=== PATIENT | male | born 1940 | race Caucasian/White ===

== ENCOUNTER 2017-10-20 08:16 | Outpatient (CLI) | payer MEDICARE | END 2017-10-20 08:17 | disposition home or self-care (01) | LOC: BICULT 08:16 | PROVIDERS: ATTEND Internal Medicine Cardiovascular Disease | DX: K76.89 Other specified diseases of liver (principal); K76.0 Fatty (change of) liver, not elsewhere classified | CPT/HCPCS: 76705 ==

== ENCOUNTER 2019-07-02 20:59 | Emergency (ER) | payer MEDICARE ==
--- NOTE | 2019-07-03 01:12 | CON ---
DATE OF CONSULTATION: 07/02/2019 CONSULTING PHYSICIAN: Viet Turner MD REASON FOR CONSULTATION: Possible foreign body in his throat. HISTORY OF PRESENT ILLNESS: Mr. Du is a 78-year-old male, who was transferred from [place] around lunchtime eating a drumstick with chicken and feeling like a piece of the bone was lodged in his throat. From the ER [place], they stated that he still felt the bone lodged in his throat and transferred him down for further evaluation. He states that at this point in time, he feels no evidence of bone being lodged in his throat still, is not having difficulty swallowing. He has not had any hoarseness or difficulty breathing. He feels like it may be down in his stomach. There has been no hemoptysis. He denies any other complaints at this time. He is concerned about the bone rupturing his intestine. 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 He is not having difficulty swallowing or regurgitating up any undigested food. He does have a persistent cough. Please see the ER note for further details of his past medical history and review of systems reviewed on this date. PHYSICAL EXAMINATION: GENERAL: Well-developed, well-nourished white male, in no acute distress. HEENT: HEAD; normocephalic, atraumatic. Eyes; pupils are equal, round, and reactive to light. Extraocular movements are intact. EARS; tympanic membranes intact, mobile and clear. Nose shows a fluid infection noted. Mucosa looks pink and healthy. Not seen purulent drainage or infection. Oral cavity and oropharynx shows tonsils are absent. No evidence of any lesions. Multiple missing teeth. No foreign bodies or signs of injury were noted. NECK: No significant adenopathy or mass. Feel some gas movements when pushing on the left side of the pharynx suggesting he does have some entrapment of air in that area. No other palpable masses were noted. IMPRESSION: History of foreign body ingestion. No symptoms of being in his head and neck still, did not see any evidence on exam. Does have a history of Zenker 's. Does not have any symptoms of dysphagia or weight loss or aspiration. CT scan was reviewed and did not see evidence of any foreign bodies in his head and neck area. Did see what appeared to be a residual pouch in his lower neck. PLAN: Since he is not having symptoms in his head and neck area, I see no indications for doing surgery to look for the lesion. If it is already passed to the stomach, that should pass without needing any further intervention. At this point of time, I do not see anything that requires intervention on my part. Will follow up with me on an as-needed basis. Job ID: [id number] MTDD
== END 2019-07-02 22:48 | disposition home or self-care (01) ==
LOC: ERS 20:59
DX: T18.9XXA Foreign body of alimentary tract, part unspecified, initial encounter (principal); F32.9 Major depressive disorder, single episode, unspecified; I10 Essential (primary) hypertension; F41.9 Anxiety disorder, unspecified; F41.0 Panic disorder [episodic paroxysmal anxiety]; Z87.891 Personal history of nicotine dependence; Z79.891 Long term (current) use of opiate analgesic; Z79.01 Long term (current) use of anticoagulants; Z79.899 Other long term (current) drug therapy
CPT/HCPCS: 99283

== ENCOUNTER 2020-04-07 17:16 | Observation (INO) | payer MEDICARE ==
[2020-04-07] MEDS ORDERED: Aspirin Chewable 81 MG TAB ONE (18:33)
[2020-04-07 19:09] LABS: Troponin I 0.018 ng/mL (< 0.028)
[2020-04-07 21:51] LABS: Troponin I Less than 0.010 ng/mL (< 0.028)
--- NOTE | 2020-04-07 23:30 | HP ---
REASON FOR ADMISSION: Chest pain. HISTORY OF PRESENT ILLNESS: This is a 79-year-old male patient, who does have history of memory loss, presenting to the ER as a transfer from [facility] for chest pain that occurred around 11:30 a.m. He informed his that he developed left-sided chest pain, nonradiating, described as if he was hit by a sledgehammer on the left side of his chest and the sensation woke him up from sleep and then resolved by the time he arrived to the emergency room. Currently, he is eating his dinner. Appears to be very comfortable. No acute distress. PAST MEDICAL HISTORY: 1. Two throat surgeries for Zenker diverticulum. 2. Pyloric stenosis postsurgery. 3. High blood pressure. 4. High cholesterol. 5. Chronic back and leg pain post pain pump insertion. 6. Short memory loss. 7. Status post appendectomy. 8. Panic attacks. 9. Valvulopathy, followed by his stablehand. SOCIAL HISTORY: Does not drink. Quit smoking in 1983. FAMILY HISTORY: Negative for coronary artery disease. REVIEW OF SYSTEMS: All systems reviewed, except the above mentioned, found to be negative. PHYSICAL EXAMINATION: GENERAL: Awake, alert, and oriented, does not appear in distress. VITAL SIGNS: His blood pressure is 103/67, heart rate of 62, and saturating 96% on room air. HEENT: Head is nontraumatic and normocephalic. Pupils equal, reactive. Extraocular movements are intact. Nonicteric sclerae. Well-injected conjunctivae. Oral mucosa normal. Nasal mucosa normal. NECK: Supple. No adenopathy. No murmur. Thyroid is not palpable. Trachea is midline. No supraclavicular adenopathy. HEART: S1, S2. Regular. Faint systolic murmur heard. No displacement of PMI. LUNGS: Clear to auscultation bilaterally. No wheezes, rhonchi, or crackles. Bowel sounds are positive. Nontender abdomen. No hepatosplenomegaly. EXTREMITIES: No lower extremity edema. No cyanosis. NEUROLOGIC: Cranial nerves 2 through 12 are within normal limits. Normal motor function. Normal sensory function. Normal reflexes. LABORATORY: Blood work shows WBC 5.8, hemoglobin 14.8, and platelets of 200. D-dimer less than 0.27. Sodium of 140, potassium 4.2, bicarb 24, and creatinine of 1.44. No previous labs to compare with. Troponin initially 0.01, repeat 0.018. EKG shows normal sinus rhythm. ASSESSMENT AND PLAN: This is a 79-year-old male patient, who is presenting with chest pain. We will admit him to rule out acute coronary syndrome. Cardiac: Patient will be admitted to telemetry. We will continue cycling cardiac enzymes. We will provide him with blood pressure control. We will schedule him for a nuclear stress test in the morning. For DVT prophylaxis, SCDs and Lovenox. For his abnormal creatinine, we will recheck his creatinine in the morning. I did discuss with his his code status and he wishes to be a full code. Job ID: [id number]
[2020-04-08 04:38] LABS: Anion Gap 15 mmol/L (10-20); BUN (Urea Nitrogen) 25 mg/dL (8.4-25.7); Calc. Creatinine Clearance 0 mL/min (70-130); Calcium 9.4 mg/dL (7.8-10.44); Carbon Dioxide 24 mmol/L (23-31); Chloride 106 mmol/L (98-107); Estimated GFR-MDRD 54; Glucose 101 mg/dL (83-110); Potassium 3.9 mmol/L (3.5-5.1); Sodium 141 mmol/L (136-145)
--- NOTE | 2020-04-08 08:30 | PDOC.HOSPP ---
- Subjective Encounter Date: 04/08/20 Encounter Time: 15:00 Subjective: Patient back from stress test. Results pending. Patient without any chest pain. Feels back to normal. - Objective Result Diagrams: 04/08/20 04:05 Hospitalist ROS - Review of Systems Constitutional: denies: fever, chills Respiratory: denies: cough, shortness of breath Cardiovascular: denies: chest pain, palpitations Gastrointestinal: denies: nausea, vomiting, abdominal pain - Exam General Appearance: NAD, awake alert ENT: moist mucosa Heart: RRR, no murmur, no gallops, no rubs Respiratory: CTAB, no wheezes, no rales, no ronchi Gastrointestinal: soft, non-tender, non-distended, normal bowel sounds Psychiatric: normal affect, normal behavior, A&O x 3 Hosp A/P (1) Chest pain, rule out acute myocardial infarction Code(s): R07.9 - CHEST PAIN, UNSPECIFIED Status: Resolved (2) HTN (hypertension) Code(s): I10 - ESSENTIAL (PRIMARY) HYPERTENSION Status: Chronic (3) HLD (hyperlipidemia) Code(s): E78.5 - HYPERLIPIDEMIA, UNSPECIFIED Status: Chronic (4) Valvular heart disease Status: Chronic (5) Chronic back pain Code(s): M54.9 - DORSALGIA, UNSPECIFIED; G89.29 - OTHER CHRONIC PAIN Status: Chronic (6) Anxiety Code(s): F41.9 - ANXIETY DISORDER, UNSPECIFIED Status: Chronic - Plan Cardiac markers negative x3. Awaiting nuclear medicine stress test. If negative can d/c home and have him f/u with his PCP and dance professor.
[2020-04-08] MEDS ORDERED: Enoxaparin Sodium 40 MG/0.4 ML SYRINGE SC SCH (09:00)
[2020-04-08] MEDS ORDERED: Enoxaparin Sodium 40 MG/0.4 ML SYRINGE ONE (09:07)
[2020-04-08] MEDS ORDERED: ADENOSINE 60 MG/20 ML VIAL ONE (13:13)
[2020-04-08 13:56] LABS: SARS-CoV-2 MS2 Positive; SARS-CoV-2 N Gene Negative; SARS-CoV-2 S Gene Negative; SARS-CoV-2 by NAA Not Detected (NotDetected); SARS-CoV-2 orf1ab Negative
[2020-04-08 14:40] VITALS: BMI 30.6
[2020-04-08] MEDS ORDERED: clonazePAM 0.5 MG TAB PO SCH (15:00)
[2020-04-08 15:53] VITALS: BP 131/63; TEMP 97.9
--- NOTE | 2020-04-08 16:15 | NM ---
EXAM: CARDIAC SPECT HISTORY: Chest pain, hypertension, cholesterol, valvular heart disease TECHNIQUE: A myocardial perfusion scan was performed using the single isotope 1 day protocol with rubén hnetium 99m sestamibi. [10 mCi] was injected intravenously for the rest exam followed by 30 mCi for the stress study. Pharmacologic stress with adenosine was monitored and interpreted by the nurse practitioner FINDINGS: Homogeneous tracer distribution is seen in the myocardial segments on stress and rest image s without fixed or reversible defects. Gated SPECT LVEF: 57% Wall motion exam: Normal IMPRESSION: Normal myocardial perfusion scan
[2020-04-08] MEDS ORDERED: Atorvastatin Calcium 20 MG TAB PO SCH (21:00)
[2020-04-08] MEDS ORDERED: Simvastatin 40 MG TAB PO SCH (21:00)
[2020-04-09] MEDS ORDERED: Escitalopram Oxalate 10 mg Tablet PO SCH (09:00)
[2020-04-09] MEDS ORDERED: UBIQUINOL 100 MG PO SCH ×2 (09:00)
[2020-04-09] MEDS ORDERED: Ascorbic Acid 500 mg Chewable Tablet PO SCH (09:00)
[2020-04-09] MEDS ORDERED: Tamsulosin HCl 0.4 MG CAP PO SCH (09:00)
[2020-04-09] MEDS ORDERED: Aspirin 81 mg Enteric Coated Tablet PO SCH (09:00)
[2020-04-09] MEDS ORDERED: Lisinopril 10 MG TAB PO SCH (09:00)
--- NOTE | 2020-04-10 08:33 | DIS ---
DATE OF ADMISSION: 04/07/2020 DATE OF DISCHARGE: 04/08/2020 PRIMARY CARE PHYSICIAN: Maximo Cohn MD REASON FOR ADMISSION: Chest pain. DIAGNOSES AT DISCHARGE: 1. Chest pain, resolved. 2. Hypertension. 3. Hyperlipidemia. 4. Valvular heart disease. 5. Chronic back pain. 6. Anxiety. PROCEDURES: Nuclear medicine stress test showing no evidence for coronary artery disease, normal nuclear medicine stress test. CONSULTATIONS: None. SUMMARY OF HOSPITAL COURSE: This is a 79-year-old white male who presents to the ER after waking up with chest pain around 11:30 in the morning. It is left-sided, nonradiating, felt like he was hit by a sledge hammer on left side of the chest that woke him up from sleep. The pain resolved by the time he got to the emergency room and he has not had any recurrence. The patient had negative cardiac markers, negative D-dimer. He was observed in the hospital overnight. He had a nuclear medicine stress test this morning that was normal. He also had a normal EKG, just a first-degree AV block, but no ST-segment or T-wave abnormalities. The patient was asymptomatic at the time of discharge and is being discharged home. DISCHARGE MANAGEMENT: Discharged home. ACTIVITY: As tolerated. DIET: Healthy heart, low-sodium diet. FOLLOWUP: With primary care physician in 1 to 2 weeks. DISCHARGE MEDICATIONS: 1. Vitamin C 500 mg daily. 2. Aspirin 81 mg daily. 3. Clonazepam 0.5 mg 3 times a day. 4. Lexapro 10 mg daily. 5. Lisinopril 10 mg daily. 6. Simvastatin 40 mg at night. 7. Tamsulosin 0.4 mg daily. 8. Ubiquinol 100 mg daily. Job ID: [id number]
== END 2020-04-08 18:31 | disposition home or self-care (01) ==
LOC: ERS 17:16 → ERHOLD 18:14 → 2NO 04-08 10:57
PROVIDERS: ADMIT Emergency Medicine; ATTEND Emergency Medicine
DX: R07.9 Chest pain, unspecified (principal); I11.9 Hypertensive heart disease without heart failure; E78.5 Hyperlipidemia, unspecified; F41.9 Anxiety disorder, unspecified; F32.9 Major depressive disorder, single episode, unspecified; G89.29 Other chronic pain; M54.5 Low back pain; Z79.82 Long term (current) use of aspirin; Z79.899 Other long term (current) drug therapy; Z87.891 Personal history of nicotine dependence; Z88.7 Allergy status to serum and vaccine; Z88.8 Allergy status to other drugs, medicaments and biological substances; Z20.828 Contact with and (suspected) exposure to other viral communicable diseases
CPT/HCPCS: 78452; 80048; 84484; 93005; 93017; 96372; 99285; A9500; G0378 ×3; U0003; 36415; 87635; J0153; J1650

== ENCOUNTER 2020-05-20 06:00 | Inpatient (IN) | payer MEDICARE ==
--- NOTE | 2020-05-20 10:16 | PDOC.FPRHP ---
- History of Present Illness Chief Complaint: fever History of Present Illness: Pt is a 79 yo male w/ PMH of HTN, HLD, dementia who presents with fever and AMS. Pt's is at bedside and able to give us the history as pt has problems with recall. Around 1am this morning, pt was found in bed by and was not able to converse as normal. He was able to follow all commands but was very weak and could not get out of bed. His reports that he does have periods of "lethargy" chronically. At baseline he is able to ambulate around the house. He has been using a walker due to a recent ankle injury. She also noticed he "felt warm" and was found to have a fever of 102F. Yesterday he was not as active as normal and went to bed early. Also had some dyspepsia. Pt denies SOB, cough, myalgia, N/V, diarrhea. Not aware of any sick contacts. Was seen at outside ED, given vancomycin, cefepime and 1L NS then transferred here. ED Course: as above - Allergies/Adverse Reactions Allergies Allergy/AdvReac Type Severity Reaction Status Date / Time donepezil [From Aricept] Allergy Verified 05/20/20 11:41 tetanus immune globulin Allergy Verified 05/20/20 11:41 - Home Medications Medication Instructions Recorded Confirmed Type Ascorbic Acid [Vitamin C] 500 mg PO DAILY 01/20/14 05/20/20 History Escitalopram Oxalate 20 mg PO DAILY 01/20/14 05/20/20 History Lisinopril 10 mg PO DAILY 01/20/14 05/20/20 History Simvastatin 40 mg PO HS 01/20/14 05/20/20 History Tamsulosin HCl 0.4 mg PO HS 01/20/14 05/20/20 History Ubiquinol 100 mg PO BID 01/20/14 05/20/20 History clonazePAM 1 mg PO HS 01/20/14 05/20/20 History Cholecalciferol (Vitamin D3) 2,000 unit PO DAILY 05/20/20 05/20/20 History [Vitamin D3] Gabapentin [Neurontin] 100 mg PO TID 05/20/20 05/20/20 History Lutein 20 mg PO DAILY 05/20/20 05/20/20 History Memantine HCl [Namenda] 10 mg PO BID 05/20/20 05/20/20 History Multivitamin [Multivitamins] 1 tablet PO DAILY 05/20/20 05/20/20 History Rivaroxaban [Xarelto] 20 mg PO 1800 05/20/20 05/20/20 History - History PMHx: hx of PE, HTN, HLD, chronic back pain, short term memory loss, possible dementia, anxiety, valvular disease, concussion PSHx: throat x2 for zenker diverticulum, back surgery x2, pyloric stenosis, appendectomy FHx: heart disease, mother-pancreatic cancer and dementia Social: no T/A/D, 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 denies: nausea, vomiting, diarrhea Genitourinary: denies: dysuria Skin: denies: rashes Musculoskeletal: denies: pain, tenderness Neurological: reports: weakness - Vital signs BP: 114/71, HR 60, RR 20, O2 97% on RA, Tmax 102.2F - Physical Exam Constitutional: NAD -Constitutional: AO x2 HEENT: normocephalic and atraumatic, no scleral icterus, grossly normal vision, grossly normal hearing -HEENT: wearing nasal cannula Neck: supple, no JVD Heart: RRR, normal S1/S2, no edema -Heart: 2/6 holosystolic murmur heard throughout with radiation to L carotid Lungs: CTAB, no respiratory distress, no rales/rhonchi, no wheezing Abdomen: soft, non-tender, no masses/distention Musculoskeletal: normal structure, ROM grossly normal Neurological: no focal deficit Skin: no rash/lesions, no jaundice Heme/Lymphatic: no unusual bruising or bleeding Psychiatric: normal mood and affect -Psychiatric: poor memory FMR H&P: Results - Labs Result Diagrams: 05/20/20 12:47 05/20/20 12:47 FMR H&P: A/P - Plan #Acute metabolic encephalopathy and SIRS, unknown source -WBC 5.7, bands 31, Fever -lactate 1.7, electrolytes WNL, flu neg -pt appears to be back at baseline, well appearing, in no acute distress -CXR: no acute abnormality -given vanc and cefepime in ED, will wait for labs results and decide whether to continue -pending COVID, procal, BCx, UCx, RVP -post acute screening: PT/OT, CM for possible placement -tylenol prn for fever #DOMINICK vs CKD -BUN/Cr: 23/06.46 -unsure of baseline kidney function -given 1L NS at outside ED, now on mIVF -pending repeat BMP #R ankle sprain -occurred 2 weeks ago, has been using walker at home -consult PT/OT -fall precautions, ambulate with assist #hx of esophageal disease -hx of 2 surgeries for zenker diverticulum, eats normal diet - noticed recent changes in swallow and GERD sx -consult speech, appreciate recs #hx of PE -continue home xarelto #HTN -continue home meds #dementia -continue home meds #HLD -continue home meds #hx of constipation -prn docusate and miralax #BPH -continue home meds #Anxiety -continue home meds Code: Full IVF: LR @ 100ml/hr DVT ppx: xarelto PCP: OOT Diet: HH Dispo: Admit to medical, pending work up for source of infection. FMR H&P: Upper Level - Pertinent history PCP: DIRECTOR OF WEB MARKETING HPI: [id number] with a PMH notable for HTN, dementia, valvular disease (suspected ), and Hx PE on xarelto who was directly admitted from the [place] ER for SIRS without a source. Due to the patients dementia history was obtained from his who was at bedside. Reports the patient was his normal self until yesterday when he was more drowsy than normal & not interested in running errands with her like he usually is. Reports last night she went up to use the bathroom and when she returned he was horizontal in the bed and unable to even sit up on his own so she called EMS. On arrival to [place] he was determined to be septic due to a fever of 102.2F and bandemia of 31 so was given Vanc & cefepime as well as 1L NS. Was then sent to [facility] for further workup. Patient denies any chest pain, SOB, cough, dysuria, myalgias or N/V/D. Endorses fever and constipation but per the nurse had a BM this AM. Per mentation is now back to baseline. ED course: 1L NS, IV vanc & cefepime See Drawer Maker note for details of PMH. - Pertinent findings Labs/Imaging: WBC 5.7, 31 bands BUN/Cr 22/1.48 eGFR 46 procal pending CXR: NAF UA: trace blood REVIEW OF SYSTEMS: Gen: + fever, chills, generalized weakness Neuro: no syncope, no new weakness Eyes: no visual changes, no eye pain ENT: no sore throat, no congestion Resp: no cough, no SOB Card: no chest pain, no edema GI: no N/V/D/C, no abdominal pain : no hematuria or dysuria MSK: no myalgias or arthritis; R ankle pain s/p sprain Heme: on Xarelto Skin: no rash/itching Vitals: BP: 133/60 HR: 58 RR: 20 O2 sat 98% on 2L NC Temp: 97.2F PHYSICAL EXAMINATION: General: NAD, alert and oriented x2 HEENT: normocephalic atraumatic Neck: Supple. Full ROM. Heart/Cardiovascular System: RRR, 3/6 systolic murmur heard best @ R sternal border w/ radiation into carotids Lungs/Respiratory System: CTAB Abdomen/Gastro-Intestinal System: soft w/ no abdominal tenderness, normal bowel sounds Extremities: Warm extremities. Mild TTP on R ankle w/o brusing or edema noted. Neuro: non-focal; CN 2-12 grossly intact. Oriented to person and place only Psychiatry: Awake, Alert and cooperative with exam. Skin: No lesions, rashes, or ulcers noted. - Plan Date/Time: 05/20/20 1016 I, Kimberlee Shine, have evaluated this patient and agree with findings/plan as outlined by director internal communications resident. Pertinent changes/additions are listed here. A/P: #Acute Metabolic encephalopathy and SIRS 2/2 unknown etiology -Patient met SIRS on presentation given bandemia & fever. Blood & urine Cxs obtained as well as a CXR which was WNLs and a flu swab which was negative. S/p BS abx as noted above in outside ED. Was then sent to [facility] for COVID swab due to suspicion of possible COVID-19 infection as potential source. Encephalopathy resolved per at time of exam. Will continue BS abx pending procal level. Rapid covid swab pending. Will obtain a rapid COVID swab. PRN Tylenol for recurrent fever. #DOMINICK vs. CKD III -BUN/Cr /1.46 in [place]. Unknown baseline renal function. Repeat BMP pending. Will continue mIVFs & continue to trend & renally dose meds PRN. #R ankle sprain -PT/OT consulted. PRN Tylenol for pain. OOB w/ assist & fall precautions. #Dementia -Will resume home meds. #HTN -Resume home meds #Suspected Aortic stenosis -Murmur noted on exam. Per follows w/ cards. #Hx of PE -Aware, continue home xarelto #HLD -Resume home meds. #Anxiety - Home meds #BPH - Home meds ABx: None IVFs: NS @ 100mL/hr VTE PPX: home Xarelto GI PPX: None Code status: FULL CODE Dispo: Admit to medical floor for close monitoring & continued workup for source of infection. Addendum - Attending - Attending Attestation Date/Time: 05/20/202046 I personally evaluated the patient and discussed the management with Dr. Sloan/Nabor. H&P repeated by me. I agree with the History, Examination, Assessment and Plan documented above with any addition or exceptions noted below. SIRS without a source- procal and lactate neg- no obvious bacterial source- IVF and RVP and trend labs. Deconditioning- PT eval for possible placement or HH PT
[2020-05-20] MEDS ORDERED: Ondansetron PF 4 MG/2 ML Vial IVP PRN (11:05)
[2020-05-20 11:43] VITALS: BMI 35.4
[2020-05-20] MEDS ORDERED: Polyethylene Glycol 3350 17 GM Packet PO PRN (11:46)
[2020-05-20] MEDS ORDERED: Docusate 100 MG CAP PO PRN (11:46)
[2020-05-20 12:20] LABS: SARS-CoV-2 MS2 Positive; SARS-CoV-2 N Gene Negative; SARS-CoV-2 S Gene Negative; SARS-CoV-2 by NAA Not Detected (NotDetected); SARS-CoV-2 orf1ab Negative
[2020-05-20] MEDS ORDERED: Lisinopril 10 MG TAB PO SCH (12:45)
[2020-05-20] MEDS ORDERED: Ascorbic Acid 500 mg Chewable Tablet PO SCH (12:45)
[2020-05-20] MEDS ORDERED: Escitalopram Oxalate 20 mg Tablet PO SCH (12:45)
[2020-05-20 12:55] LABS: Hemoglobin 11.9 g/dL (14.0-18.0); Mean Corpuscular HGB CONC 33.9 g/dL (32.0-36.0); Mean Corpuscular Volume 97.5 fL (78.0-98.0); Mean Platelet Volume 8.6 fL (7.4-10.4); Platelet Count 140 thou/uL (130-400); RBC Distribution Width 11.8 % (11.5-14.5); White Blood Cell (WBC) Count 4.6 thou/uL (4.8-10.8)
[2020-05-20 13:13] LABS: Anion Gap 14 mmol/L (10-20); BUN (Urea Nitrogen) 16 mg/dL (8.4-25.7); Calc. Creatinine Clearance 68 mL/min (70-130); Calcium 8.2 mg/dL (7.8-10.44); Carbon Dioxide 22 mmol/L (23-31); Chloride 105 mmol/L (98-107); Glucose 94 mg/dL (83-110); Potassium 4.3 mmol/L (3.5-5.1); Sodium 137 mmol/L (136-145)
[2020-05-20 13:16] LABS: Band 23 % (5-11); Eosinophils 4 % (0-10); Lymphocytes 12 % (21-51); MDiff Complete? YES; Monocytes 21 % (0-10); Neutrophil 37 % (42-75); Platelet Morphology Comment Appears Adequate; Polychromasia SLIGHT = 2-3 cells (100X) (0-2/hpf); Reactive Lymphocytes 3 % (0-10)
[2020-05-20] MEDS: Gabapentin 100 MG CAP PO SCH ×2 (13:45→21:10)
[2020-05-20] MEDS: Lactated Ringer's 1,000 ML IV SCH (13:45)
[2020-05-20] MEDS ORDERED: guaiFENesin ER 600 MG TAB PO PRN (17:10)
[2020-05-20] MEDS: Rivaroxaban 10 MG TAB PO SCH (17:41)
[2020-05-20] MEDS: Tamsulosin HCl 0.4 MG CAP PO SCH (21:10)
[2020-05-20] MEDS: Atorvastatin Calcium 20 MG TAB PO SCH (21:10)
[2020-05-20] MEDS: Ubidecarenone 50 MG CAP PO SCH (21:10)
[2020-05-20] MEDS: clonazePAM 0.5 MG TAB PO SCH (21:12)
--- NOTE | 2020-05-20 21:54 | RAD ---
CHEST ONE VIEW: History: Comparison: Radiograph same day FINDINGS: Dorsal column stimulator electro tips are similar. No confluent air space consolidation, pneumothorax or effusion. Mild lung hypoinflation. Heart size is enlarged. No pneumothorax. IMPRESSION: No acute intrathoracic abnormality. POS: HOME
[2020-05-21] MEDS: Lactated Ringer's 1,000 ML IV SCH ×2 (03:42→12:22)
[2020-05-21] MEDS: Acetaminophen 325 MG TAB PO PRN (05:04)
[2020-05-21 06:10] LABS: #Lymphocytes 0.5 thou/uL (1.20-3.40); #Monocytes 0.8 thou/uL (0.11-0.59); #Neutrophils 4.3 thou/uL (1.40-6.50); %Basophils 0.2 % (0.0-1.0); %Eosinophils 0.2 % (0.0-10.0); %Lymphocytes 8.9 % (21.0-51.0); %Monocytes 13.5 % (0.0-10.0); %Neutrophils 77.3 % (42.0-75.0); Hemoglobin 11.4 g/dL (14.0-18.0); Mean Corpuscular HGB CONC 33.8 g/dL (32.0-36.0); Mean Corpuscular Hemoglobin 32.4 pg (27.0-31.0); Mean Corpuscular Volume 96.1 fL (78.0-98.0); Platelet Count 131 thou/uL (130-400); RBC Distribution Width 11.8 % (11.5-14.5); Red Blood Cell (RBC) Count 3.53 mill/uL (4.70-6.10); White Blood Cell (WBC) Count 5.6 thou/uL (4.8-10.8)
--- NOTE | 2020-05-21 06:19 | PDOC.FM ---
- Subjective Subjective: Pt resting comfortably. Had fever overnight with some confusion, per . No complaints this morning. states that yesterday patient had come coughing and gagging when eating meat on dinner tray. - Objective Vital Signs & Weight: Vital Signs (12 hours) Temp Pulse Resp BP Pulse Ox 05/21/20 04:39 102.4 F H 91 22 H 120/58 L 91 L 05/20/20 23:34 98.2 F 59 L 18 114/56 L 96 05/20/20 19:43 101.3 F H 62 18 147/67 H 96 Weight Weight 105.69 kg I&O: 05/19/20 05/20/20 05/21/20 06:59 06:59 06:59 Intake Total 1680 Output Total 475 Balance 1205 Result Diagrams: 05/21/20 05:39 05/21/20 05:39 Radiology Reviewed by me: Yes Phys Exam - Physical Examination Constitutional: NAD HEENT: sclera anicteric Neck: supple Respiratory: no wheezing, clear to auscultation bilateral Cardiovascular: RRR 2/6 holosystolic heard throughout Gastrointestinal: soft, non-tender Musculoskeletal: no edema LEs symmetric in size, no erythema, no wounds, no tenderness with palpation of muscles or joints Neurological: non-focal Skin: no rash Dx/Plan - Plan Plan: #Acute metabolic encephalopathy and SIRS, unknown source -WBC 5.7>5.6, bands 31, continued to fever overnight -lactate 1.7, electrolytes WNL, flu neg -pt is overall well appearing, in no acute distress -repeat CXR: new airspace opacities, concerning for COVID pna -COVID was negative yesterday, will repeat today -procal 0.05>0.08, RVP negative -pending: BCx, UCx -post acute screening: PT/OT, CM for possible placement -tylenol prn for fever -Abx: vanc, cefepime for broad coverage #dysphagia -hx of esophageal stricture and zenker diverticulum s/p 2 surgeries -NPO until evaluated by speech #DOMINICK vs CKD -BUN/Cr: 23/06.46 -unsure of baseline kidney function -given 1L NS at outside ED, now on mIVF -pending repeat BMP #R ankle sprain -occurred 2 weeks ago, has been using walker at home -consult PT/OT -fall precautions, ambulate with assist #hx of PE -continue home xarelto #HTN -continue home meds #dementia -continue home meds #HLD -continue home meds #hx of constipation -prn docusate and miralax #BPH -continue home meds #Anxiety -continue home meds Code: Full IVF: LR @ 100ml/hr DVT ppx: xarelto PCP: OOT Diet: HH Dispo: Admit to medical, pending work up for source of infection. Addendum - Attending - Attending Attestation Date/Time: 05/21/20 [id number] I personally evaluated the patient and discussed the management with Dr. Sloan. I agree with the History, Examination, Assessment and Plan documented above with any addition or exceptions noted below. Fever without a source- Procal and ESR normal. COVID PCR neg but repeat CXR concerning for covid pna- will get antibodies and follow closely. No hypoxia. Patient with hx of PE and on xarelto and no hypoxia, lower ext pain or redness to suggest another clot. ESR was normal so doubt autoimmune causes. Peripheral smear pending. Will restart broad spectrum abx until cultures result. Unsure cause.
[2020-05-21 06:25] LABS: Anion Gap 14 mmol/L (10-20); BUN (Urea Nitrogen) 18 mg/dL (8.4-25.7); Calc. Creatinine Clearance 70 mL/min (70-130); Calcium 8.1 mg/dL (7.8-10.44); Carbon Dioxide 22 mmol/L (23-31); Chloride 101 mmol/L (98-107); Glucose 103 mg/dL (83-110); Potassium 4.2 mmol/L (3.5-5.1); Sodium 133 mmol/L (136-145)
--- NOTE | 2020-05-21 08:07 | RAD ---
XR Chest 1 View Portable History: Fever Comparison: Radiograph prior day Findings: Heart size is enlarged. Dorsal column stimulator electrode TIPS are similar. New peripheral airspace opacities in the lungs. Impression: New perihilar and peripheral airspace opacities concerning for a Covid-19 pneumonia.
[2020-05-21] MEDS ORDERED: Escitalopram Oxalate 10 mg Tablet PO SCH (09:00)
[2020-05-21] MEDS ORDERED: Vancomycin 1 GM in Premix Bag 1 BAG IVPB SCH (09:00)
[2020-05-21] MEDS: Cefepime 2 GM in Sodium Chloride 0.9% 100 ML IVPB SCH ×2 (09:12→20:53)
[2020-05-21] MEDS: Ascorbic Acid 500 mg Chewable Tablet PO SCH (09:46)
[2020-05-21] MEDS: Cholecalciferol 1,000 UNITS (25 MCG) TAB PO SCH (09:46)
[2020-05-21] MEDS: Ubidecarenone 50 MG CAP PO SCH ×2 (09:47→20:52)
[2020-05-21] MEDS: Gabapentin 100 MG CAP PO SCH ×3 (09:47→20:52)
[2020-05-21] MEDS: Multivit, Therapeutic 1 TAB PO SCH (09:51)
[2020-05-21] MEDS: Lisinopril 10 MG TAB PO SCH (09:51)
[2020-05-21] MEDS: Escitalopram Oxalate 20 mg Tablet PO SCH (09:52)
[2020-05-21] MEDS: Vancomycin HCl 750 MG in Sodium Chloride 0.9% 250 ML 250 ML IVPB SCH ×2 (10:35→20:53)
[2020-05-21] MEDS: Rivaroxaban 10 MG TAB PO SCH (17:25)
[2020-05-21] MEDS: Tamsulosin HCl 0.4 MG CAP PO SCH (20:52)
[2020-05-21] MEDS: clonazePAM 0.5 MG TAB PO SCH (20:52)
[2020-05-21] MEDS: Atorvastatin Calcium 20 MG TAB PO SCH (20:52)
[2020-05-22] MEDS ORDERED: Diabetic Tussin 200 MG/10 ML UDCUP PO PRN (00:10)
[2020-05-22] MEDS: Lactated Ringer's 1,000 ML IV SCH ×3 (00:10→19:59)
[2020-05-22] MEDS ORDERED: Acetaminophen 650 MG Suppository PR PRN (00:11)
[2020-05-22] MEDS: Albuterol 200 PUFF (6.7GM INHALER) INH SCH ×6 (02:06→22:00)
--- NOTE | 2020-05-22 06:07 | PDOC.FM ---
- Subjective Subjective: Pt resting comfortably in bed this AM. No acute events overnight. Tmax 99.0 overnight. - Objective Vital Signs & Weight: Vital Signs (12 hours) Temp Pulse Resp BP Pulse Ox 05/21/20 23:35 98.6 F 63 18 133/61 97 05/21/20 19:43 98.4 F 52 L 20 122/58 L 97 Weight Weight 105.69 kg I&O: 05/20/20 05/21/20 05/22/20 06:59 06:59 06:59 Intake Total 1680 Output Total 475 Balance 1205 Result Diagrams: 05/22/20 07:48 05/22/20 07:49 Phys Exam - Physical Examination Constitutional: NAD HEENT: moist MMs Neck: supple Respiratory: no wheezing, no rales, no rhonchi, clear to auscultation bilateral Cardiovascular: RRR, no significant murmur, no rub Gastrointestinal: soft, non-tender, no distention, positive bowel sounds Musculoskeletal: pulses present Neurological: moves all 4 limbs Psychiatric: normal affect, A&O x 3 Skin: normal turgor Dx/Plan - Plan Plan: #Acute metabolic encephalopathy and SIRS, unknown source -COVID was negative, Ab pending -procal 0.05>0.08, RVP negative -pending: BCx, UCx -post acute screening: PT/OT, CM for possible placement -tylenol prn for fever -Abx: vanc, cefepime for broad coverage #Dysphagia -hx of esophageal stricture and zenker diverticulum s/p 2 surgeries -Speech eval: pureed diet with extra gravy/sauce; nectar thick liquid by cup -Barrium swallow pending, NPO for now #DOMINICK vs CKD -BUN/Cr: /.46 -unsure of baseline kidney function -given 1L NS at outside ED, now on mIVF -pending repeat BMP #R ankle sprain -occurred 2 weeks ago, has been using walker at home -consult PT/OT recommended HH with PT -fall precautions, ambulate with assist Chronic Conditions: #Hx of PE: -continue home xarelto #HTN: -continue home meds #Dementia: -continue home meds #HLD: -continue home meds #BPH: -continue home meds #Anxiety: -continue home meds Code: Full IVF: LR @ 100ml/hr DVT ppx: xarelto PCP: YOGESH Diet: HH Dispo as of 05/22: Admit to medical, pending work up for source of infection.
[2020-05-22 08:24] LABS: Hemoglobin 12.2 g/dL (14.0-18.0); Mean Corpuscular HGB CONC 33.2 g/dL (32.0-36.0); Mean Corpuscular Hemoglobin 32.2 pg (27.0-31.0); Mean Platelet Volume 9.2 fL (7.4-10.4); Platelet Count 131 thou/uL (130-400); Red Blood Cell (RBC) Count 3.79 mill/uL (4.70-6.10); White Blood Cell (WBC) Count 6.5 thou/uL (4.8-10.8)
[2020-05-22 08:30] LABS: Band 15 % (5-11); Lymphocytes 15 % (21-51); MDiff Complete? YES; Monocytes 7 % (0-10); Neutrophil 63 % (42-75); Platelet Morphology Comment Appears Adequate; RBC Morphology Normal
[2020-05-22 08:37] LABS: Anion Gap 16 mmol/L (10-20); BUN (Urea Nitrogen) 18 mg/dL (8.4-25.7); Calc. Creatinine Clearance 76 mL/min (70-130); Calcium 8.5 mg/dL (7.8-10.44); Carbon Dioxide 20 mmol/L (23-31); Chloride 105 mmol/L (98-107); Glucose 102 mg/dL (83-110); Potassium 4.2 mmol/L (3.5-5.1); Sodium 137 mmol/L (136-145)
[2020-05-22] MEDS: Cholecalciferol 1,000 UNITS (25 MCG) TAB PO SCH (09:00)
[2020-05-22] MEDS: Gabapentin 100 MG CAP PO SCH ×3 (09:00→20:33)
[2020-05-22] MEDS: Ubidecarenone 50 MG CAP PO SCH ×3 (09:00→20:34)
[2020-05-22] MEDS: Multivit, Therapeutic 1 TAB PO SCH (09:00)
[2020-05-22] MEDS: Ascorbic Acid 500 mg Chewable Tablet PO SCH (09:00)
[2020-05-22] MEDS: Cefepime 2 GM in Sodium Chloride 0.9% 100 ML IVPB SCH ×2 (09:00→20:33)
[2020-05-22] MEDS: Vancomycin HCl 750 MG in Sodium Chloride 0.9% 250 ML 250 ML IVPB SCH ×2 (10:33→21:17)
[2020-05-22] MEDS: Lisinopril 10 MG TAB PO SCH (12:21)
[2020-05-22] MEDS: Escitalopram Oxalate 20 mg Tablet PO SCH (12:22)
--- NOTE | 2020-05-22 14:00 | RAD ---
Modified barium swallow HISTORY: Dysphagia. Feeding difficulties. Aspiration. Prior diverticulum repair. FINDINGS: Exam was performed in conjunction with speech pathology with multiple consistencies. Video review is available and demonstrates good bolus formation and initiation of swallowing. Reflux of contrast from the upper thoracic esophagus was seen into the posterior pharynx, resulting i n some penetration and aspiration upon additional swallowing. Additional imaging was performed with patient in AP and oblique position, revealing a large outpouchi ng of contrast from the left side of the upper esophagus, slightly anterior, below the level of the upper esophageal sphincter. As the diverticulum decompressed, there was reflux of contrast into the p osterior pharynx. The esophagus below this level was not evaluated. 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 (Approximately 3 cm l ength) Please see separate detailed report from speech pathology.
[2020-05-22 15:14] LABS: SARS-CoV-2 IgG Ab Non-Reactive (NonReactive); SARS-CoV-2 IgG Index 0.01 S/CO (< 1.40)
[2020-05-22] MEDS: Rivaroxaban 10 MG TAB PO SCH (17:08)
[2020-05-22] MEDS: Tamsulosin HCl 0.4 MG CAP PO SCH (20:33)
[2020-05-22] MEDS: clonazePAM 0.5 MG TAB PO SCH (20:33)
[2020-05-22 20:34] LABS: Vancomycin, Trough 9.5 ug/mL
[2020-05-22] MEDS: Atorvastatin Calcium 20 MG TAB PO SCH (20:34)
[2020-05-22] MEDS: Vancomycin 1 GM in Premix Bag 1 BAG IVPB SCH (22:00)
[2020-05-23] MEDS: Albuterol 200 PUFF (6.7GM INHALER) INH SCH ×2 (01:49→06:27)
[2020-05-23] MEDS: Lactated Ringer's 1,000 ML IV SCH ×2 (04:27→13:06)
--- NOTE | 2020-05-23 05:54 | PDOC.FM ---
- Subjective Subjective: Pt resting in bed this AM. No acute events overnight. - Objective Vital Signs & Weight: Vital Signs (12 hours) Temp Pulse Resp BP Pulse Ox 05/23/20 00:00 99.9 F H 59 L 18 129/61 92 L 05/22/20 20:00 99.8 F H 60 18 130/60 93 L Weight Weight 105.69 kg I&O: 05/21/20 05/22/20 05/23/20 06:59 06:59 06:59 Intake Total 1680 1760 800 Output Total 475 Balance 1205 1760 800 Result Diagrams: 05/22/20 07:48 05/23/20 05:47 Phys Exam - Physical Examination Constitutional: NAD HEENT: moist MMs Neck: supple Respiratory: no wheezing, no rales, no rhonchi, clear to auscultation bilateral Cardiovascular: RRR, no significant murmur, no rub Gastrointestinal: soft, non-tender, no distention, positive bowel sounds Musculoskeletal: no edema, pulses present Neurological: normal sensation Deviation from normal: A&O x 1 Skin: normal turgor Dx/Plan - Plan Plan: #SIRS with unknown source -COVID was negative, Ab non reactive at this time, pt is still highly suspicious for viral etiology -Pending: BCx, UCx which are so far negative at this time -Abx: vanc, cefepime for broad coverage #Dysphagia -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 -Speech eval: pureed diet thin liquid, diet with risk -Barrium swallow showed [place]-Donna diverticulum, will talk with GI to see what intervention is necessary -Pt had mild aspiration with barium swallow, aspiration pnuemonia could also be cause of patient's fever #CKD, stage 2 -DOMINICK now resolved -unsure of baseline kidney function -now on mIVF -monitoring with AM labs #R ankle sprain -occurred 2 weeks ago, has been using walker at home -consult PT/OT recommended HH with PT at discharge -fall precautions, ambulate with assist Chronic Conditions: #Hx of PE: -continue home xarelto #HTN: -continue home meds #Dementia: -continue home meds #HLD: -continue home meds #BPH: -continue home meds #Anxiety: -continue home meds Code: Full IVF: LR @ 100ml/hr DVT ppx: addis PCP: YOGESH Diet: HH, however, eating ice chips for now Dispo as of 05/23: Will consult specialty appropriate for patient's findings on barium swallow. Believe that pt's dysphagia and choking episodes could possibly have contributed to some sort of aspiration pneumonia which could be causing patient's fevers.
[2020-05-23 06:26] LABS: Anion Gap 16 mmol/L (10-20); BUN (Urea Nitrogen) 16 mg/dL (8.4-25.7); Calc. Creatinine Clearance 83 mL/min (70-130); Calcium 8.4 mg/dL (7.8-10.44); Carbon Dioxide 21 mmol/L (23-31); Chloride 102 mmol/L (98-107); Glucose 98 mg/dL (83-110); Potassium 3.9 mmol/L (3.5-5.1); Sodium 135 mmol/L (136-145)
[2020-05-23] MEDS: Acetaminophen 325 MG TAB PO PRN (08:18)
[2020-05-23] MEDS: Escitalopram Oxalate 20 mg Tablet PO SCH (08:19)
[2020-05-23] MEDS: Ascorbic Acid 500 mg Chewable Tablet PO SCH (08:19)
[2020-05-23] MEDS: Ubidecarenone 50 MG CAP PO SCH ×2 (08:19→20:20)
[2020-05-23] MEDS: Lisinopril 10 MG TAB PO SCH (08:19)
[2020-05-23] MEDS: Gabapentin 100 MG CAP PO SCH ×3 (08:20→20:18)
[2020-05-23] MEDS: Multivit, Therapeutic 1 TAB PO SCH (08:20)
[2020-05-23] MEDS: Cholecalciferol 1,000 UNITS (25 MCG) TAB PO SCH (08:20)
[2020-05-23] MEDS: Cefepime 2 GM in Sodium Chloride 0.9% 100 ML IVPB SCH ×2 (08:20→20:21)
[2020-05-23] MEDS: Vancomycin 1 GM in Premix Bag 1 BAG IVPB SCH ×2 (09:41→22:05)
[2020-05-23] MEDS: Rivaroxaban 10 MG TAB PO SCH (11:21)
--- NOTE | 2020-05-23 11:57 | CON ---
DATE OF CONSULTATION: 05/23/2020 REASON: Dysphagia. HISTORY: Mr. Du is a 79-year-old man who was admitted to the hospital three days ago with increasing lethargy at home and fever. Workup thus far has been negative for any bacterial infection with negative cultures. His COVID-19 PCR test also came back negative. Chest x-ray showed perihilar and peripheral airspace opacifications. The patient is currently being treated with cefepime and vancomycin with suspicion for aspiration pneumonia. Modified barium swallow study showed a large 3 cm diverticulum in the upper esophagus. The patient was found to have penetration and aspiration with the study. The patient has a known Zenker diverticulum back in 2003 when he was seen by Dr. Mera with a negative EGD otherwise. The patient subsequently was seen by Dr. Kendall who did the 1st surgery sometime in 2004. He subsequently went down to [place] according to the to see Dr. Vikram Rader and had a 2nd surgery in 2008. Since that time, the patient has been swallowing fairly well for the most part with the exception of popcorn. Recently within the last six weeks, he has been increasing choking and gagging and violent coughing with swallowing at home. Thus far over the last day, he has been able to swallow medication fine without any evidence of aspiration. He is yet to begin on any diet. PAST MEDICAL HISTORY: 1. Pulmonary embolism, on Xarelto. 2. Hypertension. 3. Hyperlipidemia. 4. Chronic back pain with stimulator. 5. Dementia with short-term memory loss. PAST SURGERIES: Include, 1. Esophageal diverticulum surgery x2. 2. Back surgery x2. 3. Status post appendectomy. ALLERGIES: INCLUDE DONEPEZIL, TETANUS. MEDICATIONS: At home include, 1. Neurontin. 2. Clonazepam. 3. Tamsulosin. 4. Simvastatin. 5. Xarelto. 6. Memantine. 7. Lisinopril. SOCIAL HISTORY: The patient is . He stopped smoking in 1979, and he also had stopped alcohol consumption at that time. FAMILY HISTORY: Negative for any known GI problem or liver disease. Mother with pancreatic cancer. REVIEW OF SYSTEMS: Ten-point review of systems per , did not show any other pertinent positives or negatives. No other reported symptoms other than listed above. PHYSICAL EXAMINATION: VITAL SIGNS: Temperature is 100.9, blood pressure 146/65, pulse of 52. GENERAL: He is alert, very slow to response, does not appear in any distress. HEENT: Shows anicteric sclerae. Oropharynx is clear and moist. NECK: Supple. No mass or adenopathy. No visible scar. CV: Shows normal S1, S2. Regular rate and rhythm with 2/6 systolic murmur. CHEST: Shows breath sounds, poor excursion. ABDOMEN: Soft and nontender. No tympany. No distention. No tenderness. No palpable mass or organomegaly. He has active bowel sounds. EXTREMITIES: Shows no edema. LABORATORY DATA: WBC 6.5, hemoglobin 12.2, and platelet count of 131. ASSESSMENT: 1. Dysphagia with evidence of aspiration. Symptoms prior to admission for the last several weeks are consistent with aspiration, where the patient has severe gagging, choking, and violent coughing with swallowing according to his . 2. History of Zenker diverticulum, status post two surgeries in 2004 and 2008. Current barium swallow showed a large 3 cm length diverticulum in the upper esophagus. 3. Systemic inflammatory response with fever, unknown source. Suspect aspiration pneumonia. 4. Dementia. 5. Chronic back pain. 6. Hypertension. RECOMMENDATIONS: 1. As patient has clear evidence of aspirations several weeks even prior to admission with confirmation on barium swallow and MBS. It was deemed to be unsafe for patient to swallow by Speech Path, which I concur. Gastrostomy feeding tube has been discussed with his and patient. They want to proceed. We will schedule EGD with PEG tomorrow. In the meantime, we will keep patient n.p.o. except for medications. 2. Mrs. Du requests ENT evaluation locally to see if there is anything that can be offered, this can be done as outpatient. Job ID: [id number] [facility]
[2020-05-23] MEDS: Tamsulosin HCl 0.4 MG CAP PO SCH (20:19)
[2020-05-23] MEDS: Atorvastatin Calcium 20 MG TAB PO SCH (20:19)
[2020-05-23] MEDS: clonazePAM 0.5 MG TAB PO SCH (20:19)
[2020-05-24] MEDS: Lactated Ringer's 1,000 ML IV SCH ×3 (01:58→21:29)
--- NOTE | 2020-05-24 06:11 | PDOC.FM ---
- Subjective Subjective: Pt resting comfortably in bed this AM. No acute events overnight. - Objective Vital Signs & Weight: Vital Signs (12 hours) Temp Pulse Resp BP BP Pulse Ox 05/24/20 04:00 100.4 F H 53 L 18 140/64 91 L 05/24/20 00:00 100.8 F H 86 16 107/66 97 05/23/20 20:00 98.7 F 51 L 18 134/61 92 L Weight Admit Weight 105.687 kg Weight 105.69 kg I&O: 05/22/20 05/23/20 05/24/20 06:59 06:59 06:59 Intake Total 1760 800 Balance 1760 800 Result Diagrams: 05/22/20 07:48 05/24/20 06:21 Phys Exam - Physical Examination Constitutional: NAD HEENT: moist MMs Neck: supple Respiratory: no wheezing, no rales, no rhonchi, clear to auscultation bilateral Cardiovascular: RRR, no significant murmur, no rub Gastrointestinal: soft, non-tender, no distention, positive bowel sounds Dx/Plan - Plan Plan: ##Aspiration PNA and Viral PNA -COVID was negative, Ab non reactive at this time, however brought to light today that patient had + COVID last week -Pending: BCx, UCx which are so far negative at this time -Abx: vanc, cefepime for broad coverage -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 Kendall and Dr. Benitez in 2003 per the . Information provided from about contact information. ##CKD, stage 2 -DOMINICK now resolved -unsure of baseline kidney function -now on mIVF -monitoring with AM labs ##R ankle sprain -occurred 2 weeks ago, has been using walker at home -consult PT/OT recommended HH with PT at discharge -fall precautions, ambulate with assist Chronic Conditions: #Hx of PE: continue home xarelto #HTN: continue home meds #Dementia: continue home meds #HLD: continue home meds #BPH: continue home meds #Anxiety: continue home meds DVT ppx: Xarelto PCP: OOT Diet: HH, please see speech/dietary recommendations Code: FULL Dispo as of 05/24: Pt to have Dobhoff today. Will place back on precautions based on +COVID last week.
[2020-05-24 06:53] LABS: Anion Gap 16 mmol/L (10-20); BUN (Urea Nitrogen) 15 mg/dL (8.4-25.7); Calc. Creatinine Clearance 84 mL/min (70-130); Calcium 8.4 mg/dL (7.8-10.44); Carbon Dioxide 19 mmol/L (23-31); Chloride 104 mmol/L (98-107); Glucose 89 mg/dL (83-110); Potassium 4.1 mmol/L (3.5-5.1); Sodium 135 mmol/L (136-145)
[2020-05-24 08:24] LABS: Vancomycin, Trough 19.3 ug/mL
[2020-05-24] MEDS: Multivit, Therapeutic 1 TAB PO SCH (09:34)
[2020-05-24] MEDS: Gabapentin 100 MG CAP PO SCH ×3 (09:34→21:26)
[2020-05-24] MEDS: Ascorbic Acid 500 mg Chewable Tablet PO SCH (09:34)
[2020-05-24] MEDS: Cholecalciferol 1,000 UNITS (25 MCG) TAB PO SCH (09:34)
[2020-05-24] MEDS: Escitalopram Oxalate 20 mg Tablet PO SCH (09:35)
[2020-05-24] MEDS: Cefepime 2 GM in Sodium Chloride 0.9% 100 ML IVPB SCH ×2 (09:35→21:27)
[2020-05-24] MEDS: Lisinopril 10 MG TAB PO SCH (09:35)
[2020-05-24] MEDS: Vancomycin 1 GM in Premix Bag 1 BAG IVPB SCH ×2 (09:36→21:27)
[2020-05-24] MEDS: Ubidecarenone 50 MG CAP PO SCH ×2 (12:02→21:27)
--- NOTE | 2020-05-24 14:16 | PRG ---
DATE OF SERVICE: 05/24/2020 SUBJECTIVE: The patient had some oxygen desaturation overnight associated with fever, currently on 2 L nasal cannula. He reports feeling fine otherwise. Outside COVID testing came back positive. OBJECTIVE: VITAL SIGNS: T-max 100.4, blood pressure 126/59, pulse of 74. GENERAL: He is alert without distress, not visibly tachypneic or dyspneic. HEENT: Sclerae anicteric. NECK: Supple. CV: Normal S1 and S2. Regular rate and rhythm. CHEST: Breath sounds. ABDOMEN: Soft and nontender. He has active bowel sounds. EXTREMITIES: No edema. LABORATORY DATA: Electrolytes within normal range. Creatinine 1.10 and BUN of 15. ASSESSMENT: 1. Outside test positive for COVID-19, likely account for his fever. The patient now has some mild respiratory symptoms. 2. Dysphagia with evidence of aspiration on modified barium swallow. 3. History of Zenker diverticulum, status post 2 surgeries in 2004 and 2008 with current barium swallow showing a large 3 cm length diverticulum in the upper esophagus. 4. Dementia. 5. Chronic back pain. 6. Hypertension. RECOMMENDATIONS: 1. We will cancel EGD with PEG placement today because of his COVID positive status and declining respiratory status. 2. Recommend placing tube placement for nutritional support in the meantime. 3. EGD with PEG can be considered once the patient's clinical status is more defined and improved. Job ID: [id number]
[2020-05-24] MEDS: clonazePAM 0.5 MG TAB PO SCH (21:26)
[2020-05-24] MEDS: Atorvastatin Calcium 20 MG TAB PO SCH (21:26)
[2020-05-24] MEDS: Tamsulosin HCl 0.4 MG CAP PO SCH (21:27)
[2020-05-24] MEDS: Acetaminophen 325 MG TAB PO PRN (21:36)
[2020-05-25] MEDS: Lactated Ringer's 1,000 ML IV SCH ×2 (05:07→16:16)
--- NOTE | 2020-05-25 06:08 | PDOC.FM ---
- Subjective Subjective: No acute events overnight. Pt resting comfortably in bed this AM. Tmax overnight is 101.3. - Objective Vital Signs & Weight: Vital Signs (12 hours) Temp Pulse Resp BP Pulse Ox 05/25/20 00:30 99.7 F H 58 L 16 132/63 95 05/24/20 23:03 100.1 F H 05/24/20 21:36 102.4 F H 72 18 166/72 H 96 05/24/20 20:00 96 Weight Admit Weight 105.687 kg Weight 105.69 kg I&O: 05/23/20 05/24/20 05/25/20 06:59 06:59 06:59 Intake Total 800 1200 Balance 800 1200 Result Diagrams: 05/22/20 07:48 05/25/20 06:17 Phys Exam - Physical Examination Constitutional: NAD HEENT: moist MMs Neck: supple Respiratory: no wheezing, no rales, no rhonchi, clear to auscultation bilateral Cardiovascular: RRR, no significant murmur, no rub Gastrointestinal: soft, non-tender, no distention, positive bowel sounds Dx/Plan - Plan Plan: ##Aspiration PNA and Viral PNA -COVID was negative, Ab non reactive at this time, however brought to light that patient had + COVID last week -Will repeat antibodies to see if they become reactive, and at this time will keep pt on precautions -COVID labs were elevated -Pending: BCx, UCx which are so far negative at this time -Abx: vanc, cefepime for broad coverage, see discussion below about this today -Suspicion due to [place]-Donna diverticulum that was shown to cause some aspiration for patient. 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 Jett, for findings on barrium swallow, patient and have decided on PEG tube which GI was going to perform, however in setting with patient's COVID + test last week and was on NC yesterday, this was decided against at this time. Dobhoff was then decided in the interim, however this has not been placed yet as attempts yesterday were unsuccessful. -Has previously had surgeries with Dr. Kendall and Dr. Benitez in 2003 per the . Information provided from about contact information. ##CKD, stage 2 -DOMINICK now resolved -unsure of baseline kidney function -now on mIVF -monitoring with AM labs ##R ankle sprain -occurred 2 weeks ago, has been using walker at home -consult PT/OT recommended HH with PT at discharge -fall precautions, ambulate with assist Chronic Conditions: #Hx of PE: continue home xarelto #HTN: continue home meds #Dementia: continue home meds #HLD: continue home meds #BPH: continue home meds #Anxiety: continue home meds DVT PPX: Xarelto Diet: HH, please see speech/dietary recommendations Code: FULL PCP: OOT Dispo as of 05/25: Dobhoff to be placed by rounding GI today. Pt is still NPO. Pt is currently on abx for concern for aspiration PNA, however, believe that pt's symptoms are related more to a COVID viral etiology as he has still been having elevated temps while being on these abx. Will consider stopping abx today. End goal is pt to have PEG tube placed.
[2020-05-25 07:03] LABS: ALT (SGPT) 33 U/L (8-55); AST (SGOT) 43 U/L (5-34); Albumin 3.6 g/dL (3.4-4.8); Alkaline Phosphatase 66 U/L (40-110); Anion Gap 16 mmol/L (10-20); BUN (Urea Nitrogen) 16 mg/dL (8.4-25.7); Bilirubin, Total 0.6 mg/dL (0.2-1.2); Calc. Creatinine Clearance 78 mL/min (70-130); Calcium 8.3 mg/dL (7.8-10.44); Carbon Dioxide 20 mmol/L (23-31); Chloride 101 mmol/L (98-107); Globulin 2.7 g/dL (2.4-3.5); Glucose 88 mg/dL (83-110); Protein, Total 6.3 g/dL (5.8-8.1); Sodium 133 mmol/L (136-145)
[2020-05-25] MEDS: Ubidecarenone 50 MG CAP PO SCH ×2 (09:29→21:48)
[2020-05-25] MEDS: Gabapentin 100 MG CAP PO SCH ×3 (09:30→21:48)
[2020-05-25] MEDS: Cholecalciferol 1,000 UNITS (25 MCG) TAB PO SCH (09:30)
[2020-05-25] MEDS: Ascorbic Acid 500 mg Chewable Tablet PO SCH (09:30)
[2020-05-25] MEDS: Lisinopril 10 MG TAB PO SCH (09:30)
[2020-05-25] MEDS: Escitalopram Oxalate 20 mg Tablet PO SCH (09:30)
[2020-05-25] MEDS: Acetaminophen 325 MG TAB PO PRN ×2 (09:31→21:48)
[2020-05-25] MEDS: Vancomycin 1 GM in Premix Bag 1 BAG IVPB SCH (09:33)
[2020-05-25] MEDS: Cefepime 2 GM in Sodium Chloride 0.9% 100 ML IVPB SCH ×2 (09:33→21:49)
[2020-05-25] MEDS: Multivit, Therapeutic 1 TAB PO SCH (09:33)
--- NOTE | 2020-05-25 16:22 | PRG ---
DATE OF SERVICE: 05/25/2020 SUBJECTIVE: Mr. Du is without complaints, although he does not know where he is. He does not know that he has a COVID infection and he has noted that he has swallowing problems. I have talked to the patient's and he has significant dementia. This has been a progressive decline in mental status for some time. For some time, she has had to watch how he eats and drinks. It has been several years since his last surgery on the Zenker diverticulum as outlined in Dr. Jett's note. For years, more than 10, he has had coughing spells, which were terrible to the point where he will turn red in the face at times, but interestingly he has never had aspiration pneumonia before. He was admitted with the concern for aspiration pneumonia, but now has been turned out to have COVID. The nurses were unable to place a Dobhoff tube yesterday. It kept coiling in the mouth. MEDICATIONS: 1. Tylenol. 2. Vitamin C. 3. Cefepime. 4. Ascorbic acid. 5. Clonazepam. 6. CoQ10. 7. Colace p.r.n. 8. Lexapro. 9. Guaifenesin. 10. LR at 100. 11. Lisinopril. 12. Dulera. 13. Namenda. 14. Theragran. 15. MiraLAX p.r.n. 16. Xarelto, on hold. OBJECTIVE: VITAL SIGNS: T-max 102, T-current 101, pulse 73, saturations 94% on 3 L nasal cannula, blood pressure 123/59. GENERAL: The patient is pleasantly demented. LUNGS: Clear. HEART: Regular without clicks or murmurs. ABDOMEN: Soft, nontender. There is no rebound. There is no guarding. LABORATORY DATA: White count 6.5, hemoglobin 12.5, platelet count 113. D-dimer 1.1 yesterday. Electrolytes normal. Ferritin 544. CRP 4.1, LDH 222. COVID test in the inpatient setting, negative on and . His notes she is tested positive for COVID and he as well from a test done as an outpatient on the . ASSESSMENT: 1. COVID pneumonia. X-rays consistent with this. Clinical course is consistent with this. 2. Oropharyngeal dysphagia. This has been chronic. It is not new. It has progressed slightly with his worsening dementia. A Dobhoff was not able to be placed, which is not surprising in light of his previous surgery for his Zenker's and we were not able to place one at the bedside due to the high risk of perforation with his related diverticula. He may improve his dysphagia with the dilatation of the upper esophageal sphincter in the future. The time for that is not now as he is not a candidate for sedation and anesthesia with his pneumonia. He would be high risk for ending up on the ventilator at this time. RECOMMENDATIONS: 1. Consider further treatment of his Zenker's or PEG tube placement when his COVID resolves. 2. He is not a candidate for a Dobhoff tube because it cannot be placed with his Zenker's in place. It is going to either perforate the Zenker's or keep coming out of his mouth as it was last night. If he needs nutrition, he can be started on PPN. He has only been n.p.o. for a few days. I do not think that needs to be started presently. 3. We would focus treatment of pneumonia on COVID and not an aspiration pneumonia. If he needs blood thinners that is fine. If he needs steroids that is fine. We would start him on some ulcer prophylaxis. We will follow along with you. Job ID: [id number]
[2020-05-25] MEDS: Rivaroxaban 10 MG TAB PO SCH (18:37)
[2020-05-25] MEDS: Atorvastatin Calcium 20 MG TAB PO SCH (21:48)
[2020-05-25] MEDS: Mometasone 100 MCG/Formoterol 5 MCG 120 PUFF INHALER INH SCH (21:48)
[2020-05-25] MEDS: Tamsulosin HCl 0.4 MG CAP PO SCH (21:49)
[2020-05-25] MEDS: clonazePAM 0.5 MG TAB PO SCH (21:49)
[2020-05-26] MEDS: Lactated Ringer's 1,000 ML IV SCH ×2 (03:07→15:00)
[2020-05-26] MEDS: Mometasone 100 MCG/Formoterol 5 MCG 120 PUFF INHALER INH SCH ×2 (05:46→17:39)
--- NOTE | 2020-05-26 06:13 | PDOC.FM ---
- Subjective Subjective: Pt resting this AM in bed. No acute events last night. Tmax was 101.1 overnight. - Objective Vital Signs & Weight: Vital Signs (12 hours) Temp Pulse Resp BP Pulse Ox 05/26/20 03:28 98.1 F 53 L 20 166/77 H 96 05/25/20 23:45 99.0 F 52 L 18 117/52 L 97 05/25/20 19:41 101.1 F H 57 L 20 141/67 H 95 Weight Admit Weight 105.687 kg Weight 105.69 kg I&O: 05/24/20 05/25/20 05/26/20 06:59 06:59 06:59 Intake Total 1200 1250 Balance 1200 1250 Result Diagrams: 05/22/20 07:48 05/26/20 06:06 Phys Exam - Physical Examination Constitutional: NAD HEENT: moist MMs Neck: supple Respiratory: no wheezing, no rales, no rhonchi, clear to auscultation bilateral Cardiovascular: RRR, no significant murmur, no rub Gastrointestinal: soft, non-tender, no distention, positive bowel sounds Dx/Plan - Plan Plan: ##Aspiration PNA and Viral PNA -COVID was negative, Ab non reactive at this time, however brought to light that patient had + COVID last week -Will repeat antibodies to see if they become reactive, and at this time will keep pt on precautions -COVID labs were elevated -Started decadron today 05/26 -Pending: BCx, UCx which are so far negative at this time -Abx: vanc, cefepime for broad coverage, see discussion below about this -Suspicion due to [place]-Donna diverticulum that was shown to cause some aspiration for patient. 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 Jett, for findings on barrium swallow, patient and have decided on PEG tube which GI was going to perform, however in setting with patient's COVID + test last week and was on NC yesterday, this was decided against at this time. Dobhoff was then decided in the interim, however this has not been successful. Dr. Mera stated that pt is not good candidate for Dobhoff given his diverticulum and risk of perforation. Suggested that PEG tube be placed once COVID PNA resolved. -Has previously had surgeries with Dr. Kendall and Dr. Benitez in 2003 per the . Information provided from about contact information. ##CKD, stage 2 -DOMINICK now resolved -unsure of baseline kidney function -now on mIVF -monitoring with AM labs ##R ankle sprain -occurred 2 weeks ago, has been using walker at home -consult PT/OT recommended HH with PT at discharge -fall precautions, ambulate with assist Chronic Conditions: #Hx of PE: continue home xarelto #HTN: continue home meds #Dementia: continue home meds #HLD: continue home meds #BPH: continue home meds #Anxiety: continue home meds DVT PPX: Xarelto Diet: HH, please see speech/dietary recommendations Code: FULL PCP: OOT Dispo as of 05/26: Pt not good candidate for Dobhoff due to risk of perforation of diverticulum. Believe that pt's symptoms are related more to a COVID viral etiology as he has still been having elevated temps while being on these abx. Will consider stopping abx today. End goal is pt to have PEG tube placed. Will need to consider PPN at this time if family does not want patient to have diet with risk of aspiration. Pt's respiratory status stable at this time. Not requiring NC.
[2020-05-26 06:37] LABS: ALT (SGPT) 33 U/L (8-55); AST (SGOT) 40 U/L (5-34); Albumin 3.7 g/dL (3.4-4.8); Alkaline Phosphatase 67 U/L (40-110); Anion Gap 18 mmol/L (10-20); BUN (Urea Nitrogen) 15 mg/dL (8.4-25.7); Bilirubin, Total 0.5 mg/dL (0.2-1.2); Calc. Creatinine Clearance 90 mL/min (70-130); Calcium 8.6 mg/dL (7.8-10.44); Carbon Dioxide 18 mmol/L (23-31); Chloride 102 mmol/L (98-107); Globulin 2.9 g/dL (2.4-3.5); Glucose 81 mg/dL (83-110); Protein, Total 6.6 g/dL (5.8-8.1); Sodium 134 mmol/L (136-145)
[2020-05-26] MEDS: Lisinopril 10 MG TAB PO SCH (08:10)
[2020-05-26] MEDS: Pantoprazole 40 MG VIAL IVP SCH (08:10)
[2020-05-26] MEDS: Ubidecarenone 50 MG CAP PO SCH ×2 (08:10→20:53)
[2020-05-26] MEDS: Dexamethasone 4 MG TAB PO SCH (08:10)
[2020-05-26] MEDS: Cholecalciferol 1,000 UNITS (25 MCG) TAB PO SCH (08:11)
[2020-05-26] MEDS: Escitalopram Oxalate 20 mg Tablet PO SCH (08:11)
[2020-05-26] MEDS: Gabapentin 100 MG CAP PO SCH ×3 (08:11→20:51)
[2020-05-26] MEDS: Ascorbic Acid 500 mg Chewable Tablet PO SCH (08:11)
[2020-05-26] MEDS: Multivit, Therapeutic 1 TAB PO SCH (08:11)
[2020-05-26] MEDS: Cefepime 2 GM in Sodium Chloride 0.9% 100 ML IVPB SCH ×2 (08:12→20:52)
[2020-05-26] MEDS: Acetaminophen 325 MG TAB PO PRN ×2 (08:34→20:51)
--- NOTE | 2020-05-26 13:57 | PRG ---
DATE OF SERVICE: 05/26/2020 SUBJECTIVE: Mr. Du remains confused, but alert and pleasant. Nurses note he has had no overt events other than ongoing fever. OBJECTIVE: VITAL SIGNS: T-max 102, T-current 98, pulse 59, O2 saturation 90% on room air, blood pressure 120/57. GENERAL: There is mild cough. LUNGS: Clear with no wheezing. HEART: Regular rhythm. ABDOMEN: Nontender. LABORATORY DATA: Sodium 134, potassium 4. BUN and creatinine are 15 and 1.03. AST 40, ALT 33. Blood cultures negative from the . Respiratory virus panel, 05/20 negative. ASSESSMENT: 1. Ongoing fever, likely related to COVID infection. The patient's and him tested positive back on the . He was negative here. Antibody test was performed, which was negative, but I am not sure that is all that accurate. There is plan to retest him on Friday. There was concern about aspiration, and although that is a possibility, his x-ray does not have typical features of that, but he does have a risk factor with his history of a Zenker's diverticulum, which has been operated on twice. 2. Zenker's diverticulum. He underwent 2 surgeries. His x-ray now looks like this is a diverticulum of the upper esophagus, this is likely related to his surgery. Ultimately, he is going to need an upper endoscopy with possible dilatation of the upper esophageal sphincter and possibly PEG tube placement. He has had dysphagia issues. Some of this may be related to his dementia, but it sounds like his issues of aspiration and coughing have been really unchanged for the past 10 years when talked to the . PLAN: I have talked with Dr. Brian Troy, family practice attending, today. As he remained stable, they are not in a hurry to move on him and feel he is not ready for discharge. If speech pathology is okay, we are starting some liquids or thickened liquids. I am okay with that, otherwise, once we get more clarification on his COVID status and his respiratory status, we would consider EGD and PEG tube. As long as his respiratory status, we can do that here this admission hopefully; however, with his ongoing fever and his ongoing cough, we will hold off for now. Job ID: [id number]
[2020-05-26 16:41] LABS: SARS-CoV-2 IgG Ab Non-Reactive (NonReactive); SARS-CoV-2 IgG Index 0.01 S/CO (< 1.40)
[2020-05-26] MEDS: Rivaroxaban 10 MG TAB PO SCH (17:39)
[2020-05-26] MEDS: Atorvastatin Calcium 20 MG TAB PO SCH (20:52)
[2020-05-26] MEDS: Tamsulosin HCl 0.4 MG CAP PO SCH (20:52)
[2020-05-26] MEDS: clonazePAM 0.5 MG TAB PO SCH (20:52)
[2020-05-27] MEDS: Lactated Ringer's 1,000 ML IV SCH ×5 (02:20→19:59)
[2020-05-27] MEDS: Mometasone 100 MCG/Formoterol 5 MCG 120 PUFF INHALER INH SCH ×2 (05:43→17:37)
--- NOTE | 2020-05-27 05:59 | PDOC.FM ---
- Subjective Subjective: Pt resting in bed this AM. No acute events overnight. Last fever was at 8am yesterday of 102. Has been afebrile since then. - Objective Vital Signs & Weight: Vital Signs (12 hours) Temp Pulse Resp BP Pulse Ox 05/27/20 03:50 97.8 F 51 L 18 148/90 H 97 05/26/20 23:45 98.0 F 46 L 18 137/62 96 05/26/20 19:41 98.6 F 48 L 18 168/74 H 96 Weight Admit Weight 105.687 kg Weight 105.69 kg I&O: 05/25/20 05/26/20 05/27/20 06:59 06:59 06:59 Intake Total 1200 1250 Balance 1200 1250 Result Diagrams: 05/22/20 07:48 05/27/20 06:05 Phys Exam - Physical Examination Constitutional: NAD HEENT: moist MMs Neck: supple Respiratory: no wheezing, no rales, no rhonchi, clear to auscultation bilateral Cardiovascular: RRR, no significant murmur, no rub Gastrointestinal: soft, non-tender, no distention, positive bowel sounds Dx/Plan - Plan Plan: ##Aspiration PNA and Viral PNA -COVID was negative, Ab non reactive at this time, however brought to light that patient had + COVID last week -Repeat Ab was negative, although high suspicion for COVID PNA given fevers while on abx -COVID labs were elevated -Started decadron on 05/26 -Pending: BCx, UCx which are so far negative at this time -Abx: vanc (d/c on 05/26), cefepime for broad coverage, see discussion below about this -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 Jett, for findings on barrium swallow, patient and have decided on PEG tube which GI was going to perform, however in setting with patient's COVID + test last week and was intermittently on NC, this was decided against at this time. Dobhoff was then decided in the interim, however the placement has not been successful. Dr. Mera stated that pt is not good candidate for Dobhoff given his diverticulum and risk of perforation. Suggested that PEG tube be placed once COVID PNA resolved. -Has previously had surgeries with Dr. Kendall and Dr. Benitez in 2003 per the . Information provided from about contact information. 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 Believe that pt's symptoms are related more to a COVID viral etiology as he has still been having elevated temps while being on these abx. Will consider stopping abx today. End goal is pt to have PEG tube placed. Discussed with yesterday in length about DWR vs. PPN and decided on DWR at this time. D/w speech 's wishes and the arranged the diet modifications advised for patient. Hopeful that we can get PEG placed during this hospitalization as pt has been stable, not requiring oxygen. Addendum - Attending - Attending Attestation Date/Time: 05/27/20 9809 I personally evaluated the patient and discussed the management with Dr. Trujillo. I agree with the History, Examination, Assessment and Plan documented above with any addition or exceptions noted below. Patient has completed 7 days of antibiotics, will d/c. Covid antibody negative yesterday. Awaiting peg tube placement with GI in the near future.
[2020-05-27 06:49] LABS: ALT (SGPT) 29 U/L (8-55); AST (SGOT) 30 U/L (5-34); Albumin 3.7 g/dL (3.4-4.8); Alkaline Phosphatase 62 U/L (40-110); Anion Gap 17 mmol/L (10-20); BUN (Urea Nitrogen) 19 mg/dL (8.4-25.7); Bilirubin, Total 0.5 mg/dL (0.2-1.2); Calc. Creatinine Clearance 80 mL/min (70-130); Calcium 8.9 mg/dL (7.8-10.44); Carbon Dioxide 23 mmol/L (23-31); Chloride 102 mmol/L (98-107); Globulin 2.8 g/dL (2.4-3.5); Glucose 129 mg/dL (83-110); Potassium 4.1 mmol/L (3.5-5.1); Protein, Total 6.5 g/dL (5.8-8.1); Sodium 138 mmol/L (136-145)
[2020-05-27] MEDS: Multivit, Therapeutic 1 TAB PO SCH (08:14)
[2020-05-27] MEDS: Gabapentin 100 MG CAP PO SCH ×3 (08:14→19:57)
[2020-05-27] MEDS: Pantoprazole 40 MG VIAL IVP SCH (08:14)
[2020-05-27] MEDS: Dexamethasone 4 MG TAB PO SCH (08:14)
[2020-05-27] MEDS: Ubidecarenone 50 MG CAP PO SCH ×2 (08:14→19:59)
[2020-05-27] MEDS: Ascorbic Acid 500 mg Chewable Tablet PO SCH (08:15)
[2020-05-27] MEDS: Escitalopram Oxalate 20 mg Tablet PO SCH (08:15)
[2020-05-27] MEDS: Lisinopril 10 MG TAB PO SCH (08:15)
[2020-05-27] MEDS: Cholecalciferol 1,000 UNITS (25 MCG) TAB PO SCH (08:15)
[2020-05-27] MEDS: Acetaminophen 325 MG TAB PO PRN (12:11)
[2020-05-27] MEDS: Rivaroxaban 10 MG TAB PO SCH (17:37)
[2020-05-27] MEDS: Atorvastatin Calcium 20 MG TAB PO SCH (19:57)
[2020-05-27] MEDS: clonazePAM 0.5 MG TAB PO SCH (19:57)
[2020-05-27] MEDS: Tamsulosin HCl 0.4 MG CAP PO SCH (19:59)
[2020-05-28] MEDS: Mometasone 100 MCG/Formoterol 5 MCG 120 PUFF INHALER INH SCH ×2 (05:46→17:33)
--- NOTE | 2020-05-28 06:02 | PDOC.FM ---
- Subjective Subjective: Pt resting comfortably in bed this AM. No acute events overnight. - Objective Vital Signs & Weight: Vital Signs (12 hours) Temp Pulse Resp BP Pulse Ox 05/28/20 04:00 97.7 F 52 L 18 162/70 H 92 L 05/28/20 00:00 99.0 F 51 L 20 147/76 H 92 L 05/27/20 20:00 98.4 F 53 L 18 156/72 H 92 L Weight Admit Weight 105.687 kg Weight 105.69 kg I&O: 05/26/20 05/27/20 05/28/20 06:59 06:59 06:59 Intake Total 1250 1940 Balance 1250 1940 Result Diagrams: 05/22/20 07:48 05/28/20 06:03 Phys Exam - Physical Examination Constitutional: NAD HEENT: moist MMs Neck: supple Respiratory: no rales, no rhonchi wheezing, diffusely, expiratory Cardiovascular: RRR, no significant murmur, no rub Gastrointestinal: soft, non-tender, no distention, positive bowel sounds Musculoskeletal: pulses present Neurological: normal sensation Deviation from normal: A&O x 1 Skin: no rash, normal turgor Dx/Plan - Plan Plan: ##Aspiration PNA and Viral PNA -COVID was negative, Ab non reactive at this time, however brought to light that patient had + COVID last week -Repeat Ab was negative, although high suspicion for COVID PNA given fevers while on abx -COVID labs were elevated -Started decadron on 05/26 -BCx, UCx which are so far negative at this time -Abx: vanc (d/c on 05/26), cefepime for broad coverage (dc on 05/27) as this was 7 days of total abx -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 Jett, for findings on barrium swallow, patient and have decided on PEG tube which GI was going to perform, however in setting with patient's COVID + test last week and was intermittently on NC, this was decided against at this time. Dobhoff was then decided in the interim, however the place ment has not been successful. Dr. Mera stated that pt is not good candidate for Dobhoff given his diverticulum and risk of perforation. Suggested that PEG tube be placed once COVID PNA resolved. -Has previously had surgeries with Dr. Kendall and Dr. Benitez in 2003 per the . Information provided from about contact information. ##CKD, stage 2 -DOMINICK now resolved -unsure of baseline kidney function -now on mIVF -monitoring with AM labs ##R ankle sprain -occurred 2 weeks ago, has been using walker at home -consult PT/OT recommended HH with PT at discharge -fall precautions, ambulate with assist Chronic Conditions: #Hx of PE: continue home xarelto #HTN: continue home meds #Dementia: continue home meds #HLD: continue home meds #BPH: continue home meds #Anxiety: continue home meds DVT PPX: Xarelto Diet: HH, please see speech/dietary recommendations Code: FULL PCP: OOT Dispo as of 05/28: Believe that pt's symptoms are related more to a COVID viral etiology as he has still been having elevated temps while he was on abx. End goal is pt to have PEG tube placed. Discussed with about DWR vs. PPN and decided on DWR at this time. Hopeful that we can get PEG placed during this hospitalization. Today noted that pt had more expiratory wheezing so placed him back on 3L NC and will suggest breathing txt today. Addendum - Attending - Attending Attestation Date/Time: 05/28/20 4846 I personally evaluated the patient and discussed the management with Dr. Trujillo. I agree with the History, Examination, Assessment and Plan documented above with any addition or exceptions noted below. The patient was restarted on oxygen this morning. He is otherwise stable. Repeating covid antibodies today. Awaiting peg placement per GI.
[2020-05-28 06:42] LABS: ALT (SGPT) 26 U/L (8-55); AST (SGOT) 29 U/L (5-34); Albumin 3.4 g/dL (3.4-4.8); Alkaline Phosphatase 56 U/L (40-110); Anion Gap 13 mmol/L (10-20); BUN (Urea Nitrogen) 19 mg/dL (8.4-25.7); Bilirubin, Total 0.4 mg/dL (0.2-1.2); Calc. Creatinine Clearance 84 mL/min (70-130); Calcium 8.5 mg/dL (7.8-10.44); Carbon Dioxide 26 mmol/L (23-31); Chloride 101 mmol/L (98-107); Globulin 2.6 g/dL (2.4-3.5); Glucose 106 mg/dL (83-110); Potassium 3.8 mmol/L (3.5-5.1); Sodium 136 mmol/L (136-145)
[2020-05-28] MEDS: Lisinopril 20 MG TAB PO SCH (08:58)
[2020-05-28] MEDS: Dexamethasone 4 MG TAB PO SCH (08:58)
[2020-05-28] MEDS: Gabapentin 100 MG CAP PO SCH ×3 (08:58→19:57)
[2020-05-28] MEDS: Escitalopram Oxalate 20 mg Tablet PO SCH (08:58)
[2020-05-28] MEDS: Ascorbic Acid 500 mg Chewable Tablet PO SCH (08:59)
[2020-05-28] MEDS: Cholecalciferol 1,000 UNITS (25 MCG) TAB PO SCH (08:59)
[2020-05-28] MEDS: Pantoprazole 40 MG VIAL IVP SCH (08:59)
[2020-05-28] MEDS: Multivit, Therapeutic 1 TAB PO SCH (08:59)
[2020-05-28] MEDS: Ubidecarenone 50 MG CAP PO SCH ×2 (08:59→19:56)
[2020-05-28] MEDS: Lactated Ringer's 1,000 ML IV SCH ×2 (09:00→15:08)
[2020-05-28] MEDS ORDERED: Albuterol Sulfate 2.5 mg/3 ml Neb NEB SCH (11:00)
[2020-05-28] MEDS ORDERED: Albuterol 200 PUFF (6.7GM INHALER) INH PRN (11:02)
--- NOTE | 2020-05-28 11:56 | PRG ---
DATE OF SERVICE: 05/28/2020 SUBJECTIVE: Mr. Du continues oropharyngeal dysphagia and likely microaspiration. He is tolerating a little bit of a liquid diet. He does not know where he is, he does not know really anything about his medical condition secondary to advanced dementia. OBJECTIVE: VITAL SIGNS: Temperature 101, pulse 56, blood pressure 160/71. GENERAL: He is alert and oriented to person, place, and time. LUNGS: Clear. Slight expiratory wheezing at the bases. ABDOMEN: Nontender. LABORATORY DATA: No CBC today. Electrolytes and comprehensive metabolic profile normal. ASSESSMENT: 1. COVID, not severe, but chest x-ray showing signs of this. 2. Chronic aspiration for prior at least 10 years related to his Zenker diverticulum, which has been excised proximal esophagus. It is unclear how much of his oropharyngeal dysphagia is related to this, cricopharyngeal bar or his advanced dementia. PLAN: PEG tube when COVID and fever resolved. Job ID: [id number]
[2020-05-28] MEDS: Acetaminophen 325 MG TAB PO PRN (12:41)
[2020-05-28] MEDS: Rivaroxaban 10 MG TAB PO SCH (17:32)
[2020-05-28] MEDS: Tamsulosin HCl 0.4 MG CAP PO SCH (19:57)
[2020-05-28] MEDS: clonazePAM 0.5 MG TAB PO SCH (19:57)
[2020-05-28] MEDS: Atorvastatin Calcium 20 MG TAB PO SCH (19:57)
[2020-05-29] MEDS: Lactated Ringer's 1,000 ML IV SCH ×3 (00:25→20:29)
[2020-05-29] MEDS: Mometasone 100 MCG/Formoterol 5 MCG 120 PUFF INHALER INH SCH ×2 (05:24→17:02)
--- NOTE | 2020-05-29 06:19 | PDOC.FM ---
- Subjective Subjective: Pt resting comfortably in bed this AM. No acute events overnight. Last temp was 101.1 @ 11:30 AM yesterday. - Objective Vital Signs & Weight: Vital Signs (12 hours) Temp Pulse Resp BP Pulse Ox 05/29/20 04:00 98.4 F 53 L 18 158/69 H 93 L 05/29/20 00:00 98.3 F 55 L 18 133/61 93 L 05/28/20 20:00 98.0 F 58 L 22 H 143/67 H 92 L Weight Admit Weight 105.687 kg Weight 105.69 kg I&O: 05/27/20 05/28/20 05/29/20 06:59 06:59 06:59 Intake Total 3380 1920 Balance 3380 1920 Result Diagrams: 05/22/20 07:48 05/29/20 06:33 Phys Exam - Physical Examination Constitutional: NAD on NC 3L HEENT: moist MMs Neck: supple Respiratory: no rales, no rhonchi wheezing, expiratory Cardiovascular: RRR, no significant murmur, no rub Gastrointestinal: soft, non-tender, no distention, positive bowel sounds Musculoskeletal: pulses present Deviation from normal: A&O x1 Skin: normal turgor Dx/Plan - Plan Plan: ##Aspiration PNA and Viral PNA -COVID was negative, Ab non reactive at this time, however brought to light that patient had + COVID last week (05/18) -Repeat Ab was negative, although high suspicion for COVID PNA given fevers while on abx, repeat antibodies pending -COVID labs were elevated -Started decadron on 05/26 -BCx, UCx which are so far negative at this time -Abx: vanc (d/c on 05/26), cefepime for broad coverage (dc on 05/27) as this was 7 days of total abx -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 -Has previously had surgeries with Dr. Kendall and Dr. Benitez in 2003 per the . Information provided from about contact information. ##CKD, stage 2 -DOMINICK now resolved -unsure of baseline kidney function -now on mIVF -monitoring with AM labs ##R ankle sprain -occurred 2 weeks ago, has been using walker at home -consult PT/OT recommended HH with PT at discharge -fall precautions, ambulate with assist Chronic Conditions: #Hx of PE: continue home xarelto #HTN: continue home meds #Dementia: continue home meds #HLD: continue home meds #BPH: continue home meds #Anxiety: continue home meds DVT PPX: Xarelto Diet: HH, please see speech/dietary recommendations Code: FULL PCP: RocaelOT Dispo as of 05/29: Believe that pt's symptoms are related more to a COVID viral etiology as he has still been having elevated temps while he was on abx. End goal is pt to have PEG tube placed once this has resolved. Pt antibodies pending at this time. Continue with DWR. Currently on CT. Addendum - Attending - Attending Attestation Date/Time: 05/29/20 2564 I personally evaluated the patient and discussed the management with Dr. Trujillo. I agree with the History, Examination, Assessment and Plan documented above with any addition or exceptions noted below.
[2020-05-29 07:24] LABS: ALT (SGPT) 28 U/L (8-55); AST (SGOT) 32 U/L (5-34); Albumin 3.5 g/dL (3.4-4.8); Alkaline Phosphatase 54 U/L (40-110); Anion Gap 16 mmol/L (10-20); BUN (Urea Nitrogen) 22 mg/dL (8.4-25.7); Bilirubin, Total 0.5 mg/dL (0.2-1.2); Calc. Creatinine Clearance 92 mL/min (70-130); Calcium 8.6 mg/dL (7.8-10.44); Carbon Dioxide 24 mmol/L (23-31); Chloride 102 mmol/L (98-107); Globulin 2.6 g/dL (2.4-3.5); Glucose 108 mg/dL (83-110); Potassium 3.8 mmol/L (3.5-5.1); Protein, Total 6.1 g/dL (5.8-8.1); Sodium 138 mmol/L (136-145)
[2020-05-29] MEDS: Pantoprazole 40 MG VIAL IVP SCH (08:18)
[2020-05-29] MEDS: Ubidecarenone 50 MG CAP PO SCH ×2 (09:12→20:29)
[2020-05-29] MEDS: Lisinopril 20 MG TAB PO SCH (09:13)
[2020-05-29] MEDS: Cholecalciferol 1,000 UNITS (25 MCG) TAB PO SCH (09:13)
[2020-05-29] MEDS: Escitalopram Oxalate 20 mg Tablet PO SCH (09:14)
[2020-05-29] MEDS: Acetaminophen 325 MG TAB PO PRN (09:14)
[2020-05-29] MEDS: Gabapentin 100 MG CAP PO SCH ×3 (09:14→20:28)
[2020-05-29] MEDS: Multivit, Therapeutic 1 TAB PO SCH (09:14)
[2020-05-29] MEDS: Ascorbic Acid 500 mg Chewable Tablet PO SCH (09:15)
[2020-05-29 09:23] LABS: SARS-CoV-2 IgG Ab Non-Reactive (NonReactive); SARS-CoV-2 IgG Index 0.02 S/CO (< 1.40)
[2020-05-29] MEDS: Dexamethasone 4 MG TAB PO SCH (10:02)
--- NOTE | 2020-05-29 15:16 | EKG ---
Test Reason : STAT Blood Pressure : / mmHG Vent. Rate : 046 BPM Atrial Rate : 046 BPM P-R Int : 206 ms QRS Dur : 108 ms QT Int : 486 ms P-R-T Axes : 037 037 038 degrees QTc Int : 425 ms Sinus bradycardia Otherwise normal ECG When compared with ECG of 07-APR-2020 17:35, No significant change was found Confirmed by DR. Марина LESTER MD ([id number]) on 05/29/2020 3:16:26 PM Referred By: Confirmed By:DR. Марина LESTER MD
[2020-05-29] MEDS: Rivaroxaban 10 MG TAB PO SCH (17:02)
[2020-05-29] MEDS: clonazePAM 0.5 MG TAB PO SCH (20:28)
[2020-05-29] MEDS: Atorvastatin Calcium 20 MG TAB PO SCH (20:28)
[2020-05-29] MEDS: Tamsulosin HCl 0.4 MG CAP PO SCH (20:29)
[2020-05-30] MEDS: Acetaminophen 325 MG TAB PO PRN (05:23)
[2020-05-30] MEDS: Mometasone 100 MCG/Formoterol 5 MCG 120 PUFF INHALER INH SCH ×2 (06:00→18:17)
[2020-05-30] MEDS: Lactated Ringer's 1,000 ML IV SCH ×4 (06:01→18:28)
--- NOTE | 2020-05-30 06:18 | PRG ---
DATE OF SERVICE: 05/29/2020 SUBJECTIVE: Mr. Du has been tolerating oral feeding with acceptance of risk and possible aspiration. He is breathing fine. His temperature still spikes to 101 just about every day. OBJECTIVE: VITAL SIGNS: Temperature current 101, pulse 55, blood pressure 176/78. ABDOMEN: Protuberant, nontender. LABORATORY DATA: Comprehensive metabolic profile normal. CBC has not been repeated. Chest x-ray has not been repeated. ASSESSMENT: 1. COVID-19. 2. Fever, possibly related to COVID-19 versus aspiration. 3. The patient continues to be on antibiotics. 4. If when cleared from a respiratory status and fevers resolve, we can proceed with the PEG tube. 5. He does have a history of Zenker's diverticulum, it has been operated on. This transitioned into a diverticula of the upper esophagus now. He has had issues with dysphagia for over 10 years and what the describes as episodes of coughing fits when he eats for over 10 years. He may have had progression of his oropharyngeal dysphagia with advancement of dementia. Job ID: [id number]
--- NOTE | 2020-05-30 06:26 | PDOC.FM ---
- Subjective Subjective: Patient reports no acute concerns, pleasantly demented. - Objective Vital Signs & Weight: Vital Signs (12 hours) Temp Pulse Resp BP BP Pulse Ox 05/30/20 05:23 101.1 F H 05/30/20 04:00 101.1 F H 69 20 171/77 H 93 L 05/29/20 20:00 98.6 F 61 20 134/61 92 L Weight Admit Weight 105.687 kg Weight 105.69 kg I&O: 05/28/20 05/29/20 05/30/20 06:59 06:59 06:59 Intake Total 3380 1920 1440 Balance 3380 1920 1440 Result Diagrams: 05/30/20 09:51 05/30/20 07:05 Phys Exam - Physical Examination Constitutional: NAD Respiratory: no wheezing, no rales, no rhonchi Cardiovascular: RRR, no significant murmur, no rub Gastrointestinal: soft, non-tender, no distention Musculoskeletal: no edema Dx/Plan - Plan Plan: Aspiration PNA and Viral PNA -COVID was negative, Ab non reactive at this time, however brought to light that patient had + COVID last week (05/18) -Repeat Ab was negative, although high suspicion for COVID PNA given fevers while on abx -COVID labs were elevated -Started decadron on 05/26 -BCx, UCx which are so far negative at this time -Abx: vanc (d/c on 05/26), cefepime for broad coverage (dc on 05/27) as this was 7 days of total abx -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 -Has previously had surgeries with Dr. Kendall and Dr. Benitez in 2003 per the . Information provided from about contact information. CKD, stage 2 -DOMINICK now resolved -unsure of baseline kidney function -now on mIVF -monitoring with AM labs R ankle sprain -occurred 2 weeks ago, has been using walker at home -consult PT/OT recommended HH with PT at discharge -fall precautions, ambulate with assist Hx of PE: continue home xarelto HTN: continue home meds Dementia: continue home meds HLD: continue home meds BPH: continue home meds Anxiety: continue home meds DVT PPX: Xarelto Diet: HH, please see speech/dietary recommendations Code: FULL PCP: RocaelOT Dispo as of 05/29: Believe that pt's symptoms are related more to a COVID viral etiology as he has still been having elevated temps while he was on abx. End goal is pt to have PEG tube placed once this has resolved. Pt antibodies negative. Continue with DWR. Currently on UT. Addendum - Attending - Attending Attestation Date/Time: 05/30/20 9736 I personally evaluated the patient and discussed the management with Dr. Perez. I agree with the History, Examination, Assessment and Plan documented above with any addition or exceptions noted below. Patient stable. Continue care for suspected COVID infection despite his negative tests. He needs PEG but is being postponed by GI until he is afebrile and asym ptomatic. Wean O2 as tolerated. Continue comfort feeds with known risk of aspiration.
[2020-05-30 07:52] LABS: ALT (SGPT) 30 U/L (8-55); AST (SGOT) 33 U/L (5-34); Albumin 3.1 g/dL (3.4-4.8); Alkaline Phosphatase 50 U/L (40-110); Anion Gap 15 mmol/L (10-20); BUN (Urea Nitrogen) 21 mg/dL (8.4-25.7); Bilirubin, Total 0.6 mg/dL (0.2-1.2); Calc. Creatinine Clearance 90 mL/min (70-130); Calcium 8.2 mg/dL (7.8-10.44); Carbon Dioxide 25 mmol/L (23-31); Chloride 100 mmol/L (98-107); Globulin 2.5 g/dL (2.4-3.5); Glucose 123 mg/dL (83-110); Potassium 3.7 mmol/L (3.5-5.1); Protein, Total 5.6 g/dL (5.8-8.1); Sodium 136 mmol/L (136-145)
[2020-05-30] MEDS: Lisinopril 20 MG TAB PO SCH (08:26)
[2020-05-30] MEDS: Ubidecarenone 50 MG CAP PO SCH ×2 (08:27→20:43)
[2020-05-30] MEDS: Dexamethasone 4 MG TAB PO SCH (08:27)
[2020-05-30] MEDS: Cholecalciferol 1,000 UNITS (25 MCG) TAB PO SCH (08:29)
[2020-05-30] MEDS: Multivit, Therapeutic 1 TAB PO SCH (08:30)
[2020-05-30] MEDS: Escitalopram Oxalate 20 mg Tablet PO SCH (08:30)
[2020-05-30] MEDS: Pantoprazole 40 MG VIAL IVP SCH (08:31)
[2020-05-30] MEDS: Ascorbic Acid 500 mg Chewable Tablet PO SCH (08:34)
[2020-05-30] MEDS: Gabapentin 100 MG CAP PO SCH ×3 (08:34→20:42)
--- NOTE | 2020-05-30 09:31 | RAD ---
XR Chest 1 View Portable History: Fever Comparison: Radiograph May 21, 2020 Findings: Extensive peripheral and perihilar opacities. No pneumothorax. Dorsal column stimulator electrode tips are in similar position. Cardiac silhouette and mediastinal contours are similar. No acute osseous abnormality. Impression: Slightly worsening multifocal airspace opacities concerning for COVID-19 pneumonia.
[2020-05-30 10:23] LABS: #Lymphocytes 0.7 thou/uL (1.20-3.40); #Monocytes 0.5 thou/uL (0.11-0.59); #Neutrophils 6.6 thou/uL (1.40-6.50); %Basophils 0.2 % (0.0-1.0); %Eosinophils 0.1 % (0.0-10.0); %Lymphocytes 9.2 % (21.0-51.0); %Monocytes 6.8 % (0.0-10.0); %Neutrophils 83.8 % (42.0-75.0); Hemoglobin 11.2 g/dL (14.0-18.0); Mean Corpuscular HGB CONC 33.1 g/dL (32.0-36.0); Mean Corpuscular Hemoglobin 31.1 pg (27.0-31.0); Mean Corpuscular Volume 93.8 fL (78.0-98.0); Mean Platelet Volume 8.7 fL (7.4-10.4); Platelet Count 183 thou/uL (130-400); RBC Distribution Width 11.6 % (11.5-14.5); Red Blood Cell (RBC) Count 3.61 mill/uL (4.70-6.10); White Blood Cell (WBC) Count 7.8 thou/uL (4.8-10.8)
--- NOTE | 2020-05-30 12:30 | PRG ---
DATE OF SERVICE: 05/30/2020 SUBJECTIVE: Mr. Du has no complaints. He did again spike fevers overnight to 101.1. Temperature currently 99.9. He remains on nasal cannula, but does not express any dyspnea. No abdominal pain. OBJECTIVE: VITAL SIGNS: Temperature 99.9, T-max was 101.1 overnight, pulse 69, blood pressure 171/77, 93% oxygen saturation on 5 L by nasal cannula. GENERAL: No acute distress, sitting up in bed comfortably. HEART: Regular rate and rhythm. LUNGS: Faint inspiratory crackles throughout. No wheezing. No respiratory distress. ABDOMEN: Nondistended. Bowel sounds present. Nontender to palpation. EXTREMITIES: No peripheral edema. LABORATORY STUDIES: WBC 7.8, hemoglobin 11.2, platelets 183. D-dimer 1.77. Sodium 136, potassium 3.7, BUN 21, creatinine 1.03, glucose 123. LFTs all normal. IMAGING STUDIES: Chest x-ray from this morning shows some slight interval worsening of multifocal airspace opacities consistent with COVID-19 pneumonia. ASSESSMENT/PLAN: 1. Oropharyngeal dysphagia, chronic. 2. Esophageal diverticulum. 3. COVID-19 pneumonia with active fevers. I agree with Dr. Mera assessment. There is nothing particularly acute about the patient's chronic oropharyngeal dysphagia with aspiration. He has already had 2 surgeries on his esophageal diverticulum in the remote past. It maybe his oropharyngeal dysphagia is slowly progressive as well due to his dementia, but current presentation really is not consistent with aspiration pneumonia, but rather COVID-19 pneumonia with active fevers, he may benefit from PEG tube placement at some point in the future, but now is certainly not the time. We could consider PEG tube placement once the patient's fevers and COVID pneumonia have resolved, and he is no longer considered to be in the infectious phase. GI can follow at a distance from this point. Please call back anytime with questions or concerns. Job ID: [id number] MTDD
[2020-05-30] MEDS: Rivaroxaban 10 MG TAB PO SCH (18:17)
[2020-05-30] MEDS: Atorvastatin Calcium 20 MG TAB PO SCH (20:42)
[2020-05-30] MEDS: clonazePAM 0.5 MG TAB PO SCH (20:42)
[2020-05-30] MEDS: Tamsulosin HCl 0.4 MG CAP PO SCH (20:43)
[2020-05-31] MEDS: Lactated Ringer's 1,000 ML IV SCH (03:29)
[2020-05-31] MEDS: Mometasone 100 MCG/Formoterol 5 MCG 120 PUFF INHALER INH SCH ×2 (05:38→18:15)
--- NOTE | 2020-05-31 06:28 | PDOC.FM ---
- Subjective Subjective: Patient doing well today, overall no concerns. No difficulty breathing or CP. Pleasantly demented - Objective MAR Reviewed: Yes Vital Signs & Weight: Vital Signs (12 hours) Temp Pulse Resp BP Pulse Ox 05/30/20 23:07 98.6 F 52 L 18 174/80 H 96 Weight Admit Weight 105.687 kg Weight 105.69 kg I&O: 05/29/20 05/30/20 05/31/20 06:59 06:59 06:59 Intake Total 1920 1440 1440 Balance 1920 1440 1440 Result Diagrams: 05/30/20 09:51 05/30/20 07:05 Phys Exam - Physical Examination Constitutional: NAD Respiratory: no wheezing, no rales, no rhonchi, clear to auscultation bilateral Cardiovascular: RRR, no significant murmur, no rub Gastrointestinal: soft, non-tender, no distention Dx/Plan - Plan Plan: Aspiration PNA and Viral PNA -COVID was negative, Ab non reactive at this time, however brought to light that patient had + COVID last week (05/18) -Repeat Ab was negative, although high suspicion for COVID PNA given fevers while on abx -COVID labs were elevated -Started decadron on 05/26 -BCx, UCx which are so far negative at this time -Abx: vanc (d/c on 05/26), cefepime for broad coverage (dc on 05/27) as this was 7 days of total abx -Suspicion due to [employer]-Donna diverticulum that was shown to cause some as piration for patient. - Wean NC today. 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 -Has previously had surgeries with Dr. Kendall and Dr. Benitez in 2003 per the . Information provided from about contact information. CKD, stage 2 -DOMINICK now resolved -unsure of baseline kidney function -now on mIVF -monitoring with AM labs R ankle sprain -occurred 2 weeks ago, has been using walker at home -consult PT/OT recommended HH with PT at discharge -fall precautions, ambulate with assist Hx of PE: continue home xarelto HTN: continue home meds Dementia: continue home meds HLD: continue home meds BPH: continue home meds Anxiety: continue home meds DVT PPX: Xarelto Diet: HH, please see speech/dietary recommendations Code: FULL PCP: OOT Dispo as of 05/29: Believe that pt's symptoms are related more to a COVID viral etiology as he has still been having elevated temps while he was on abx. End goal is pt to have PEG tube placed once this has resolved. Pt antibodies negative. Continue with DWR. Likely SNF placement. Addendum - Attending - Attending Attestation Date/Time: 05/31/20 5010 I personally evaluated the patient and discussed the management with Dr. Perez. I agree with the History, Examination, Assessment and Plan documented above with any addition or exceptions noted below.
[2020-05-31] MEDS: Ubidecarenone 50 MG CAP PO SCH ×2 (08:24→20:31)
[2020-05-31] MEDS: Pantoprazole 40 MG VIAL IVP SCH (08:24)
[2020-05-31] MEDS: Cholecalciferol 1,000 UNITS (25 MCG) TAB PO SCH (08:24)
[2020-05-31] MEDS: Escitalopram Oxalate 20 mg Tablet PO SCH (08:25)
[2020-05-31] MEDS: Lisinopril 20 MG TAB PO SCH (08:25)
[2020-05-31] MEDS: Gabapentin 100 MG CAP PO SCH ×3 (08:25→20:31)
[2020-05-31] MEDS: Multivit, Therapeutic 1 TAB PO SCH (08:25)
[2020-05-31] MEDS: Dexamethasone 4 MG TAB PO SCH (10:09)
[2020-05-31] MEDS: Ascorbic Acid 500 mg Chewable Tablet PO SCH (10:09)
[2020-05-31] MEDS ORDERED: Labetalol HCl 100 MG/20 ML VIAL ONE (12:20)
[2020-05-31] MEDS ORDERED: hydrALAZINE 20 MG/ML VIAL SLOW IVP SCH (12:30)
--- NOTE | 2020-05-31 15:03 | PQF ---
CLINICAL DOCUMENTATION CLARIFICATION FORM: Dear Dr. Yair Perez / Dr. Juan Jose Kirkpatrick Date: 05.31.20 Please exercise your independent, professional judgment in responding to the clarification form. Clinical indicators are provided on the bottom of this form for your review. Please check appropriate box(es): [ X ] Sepsis due to Aspiration Pneumonia and Viral Pneumonia [ X ] With COVID-19 [ ] Without COVID-19 [ ] Aspiration Pneumonia and Viral Pneumonia no Sepsis [ ] With COVID-19 [ ] Without COVID-19 [ ] Other diagnosis [ ] Unable to determine For continuity of documentation, please document condition throughout progress notes and discharge summary. Thank You. To be completed by CDI/Coding staff for physician review: CLINICAL INDICATORS - SIGNS / SYMPTOMS / LABS / RESULTS AND LOCATION IN MR H&P ([place]): Found by - not able to converse as normal Presents with fever and AMS mentation back to baseline Was found to have a fever of 102 F (by ) Seen at outside ED, given vacomycin, cefepime and 1L NS then transferred here direct admit from [place] SIRS W/O a source Acute metabolic Encephalopathy; SIRS - unknown source; DOMINICK VS CKD [place] ED determined to be septic d/t fever of 102.2 F and bandemia of 31 12.20 PN ([place]): Fever overnight w/ some confusion per . states that yesterday pt had come coughing and gagging when eating meat on dinner tray. 12 PN ([place]): dysphagia; aspiration pna could also be cause of pt's fever . PN ([place]): Systemic inflammatory response w/ fever, unknown source. Suspect aspiration Pneumonia 05-30. PN ([place]): aspiration PA and Viral PNA; RISK FACTORS / RESULTS AND LOCATION IN MR 12.27 COVID Positive last week 05-30. PN ([place]): aspiration PA and Viral PNA TREATMENTS / RESULTS AND LOCATION IN MR MAR Maxipime IV (05.21-) Vancomycin IV (05.21 12.) Lactated Ringers IV (05.20) 12. Barium Swallow reflux of contrast from the upper thoracic esophagus was seen into the posterior pharynx, resulting in some penetration and aspiration upon additional swallowing. 05.30 Nutrition Therapy Assessment: PEG placement planned w/ COVID resolution CPOE: oxygen NC 2-3LNC (12. 23 - 12.24 CDS Signature: Katie Schofield RN, CCDS Phone #: [phone] [email or web address] This is a permanent part of the Medical Record [facility]
[2020-05-31] MEDS: Rivaroxaban 10 MG TAB PO SCH (16:59)
[2020-05-31] MEDS: Acetaminophen 325 MG TAB PO PRN (17:00)
[2020-05-31] MEDS: Tamsulosin HCl 0.4 MG CAP PO SCH (20:31)
[2020-05-31] MEDS: Atorvastatin Calcium 20 MG TAB PO SCH (20:31)
[2020-06-01] MEDS: Mometasone 100 MCG/Formoterol 5 MCG 120 PUFF INHALER INH SCH ×2 (05:19→17:55)
--- NOTE | 2020-06-01 06:36 | PDOC.FM ---
- Subjective Subjective: Patient doing well this AM, no acute concerns. - Objective MAR Reviewed: Yes Vital Signs & Weight: Vital Signs (12 hours) Temp Pulse Resp BP BP Pulse Ox 06/01/20 04:44 98.4 F 67 18 156/69 H 90 L 06/01/20 00:00 98.4 F 59 L 20 160/70 H 90 L 05/31/20 20:00 98.5 F 63 20 148/64 H 90 L Weight Admit Weight 105.687 kg Weight 105.69 kg I&O: 05/30/20 05/31/20 06/01/20 06:59 06:59 06:59 Intake Total 1440 1440 Balance 1440 1440 Result Diagrams: 05/30/20 09:51 05/30/20 07:05 Phys Exam - Physical Examination Constitutional: NAD Respiratory: no wheezing, no rales, no rhonchi Cardiovascular: RRR, no significant murmur, no rub Gastrointestinal: soft, non-tender, no distention, positive bowel sounds Dx/Plan - Plan Plan: Aspiration PNA and Viral PNA -COVID was negative, Ab non reactive at this time, however brought to light that patient had + COVID 05/18 -Repeat Ab was negative, although high suspicion for COVID PNA given fevers while on abx -COVID labs were elevated -Started decadron on 05/26 -BCx, UCx negative -Abx: vanc (d/c on 05/26), cefepime for broad coverage (dc on 05/27) as this was 7 days of total abx -Suspicion due to [place] diverticulum that was shown to cause some aspiration for patient. - Wean NC today. 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 -Has previously had surgeries with Dr. Kendall and Dr. Benitez in 2003 per the . Information provided from about contact information. CKD, stage 2 -DOMINICK now resolved -unsure of baseline kidney function -now on mIVF R ankle sprain -occurred 2 weeks ago, has been using walker at home -consult PT/OT recommended HH with PT at discharge -fall precautions, ambulate with assist Hx of PE: continue home xarelto HTN: continue home meds Dementia: continue home meds HLD: continue home meds BPH: continue home meds Anxiety: continue home meds DVT PPX: Xarelto Diet: HH, please see speech/dietary recommendations Code: FULL PCP: YOGESH Dispo as of 05/29: Believe that pt's symptoms are related more to a COVID viral etiology as he has still been having elevated temps while he was on abx. End goal is pt to have PEG tube placed once this has resolved. Pt antibodies negative. Continue with DWR. Likely DC today with HH. Addendum - Attending - Attending Attestation Date/Time: 06/01/20 [id number] I personally evaluated the patient and discussed the management with Dr. Perez. I agree with the History, Examination, Assessment and Plan documented above with any addition or exceptions noted below. Patient stable on NC. He has been stable on current regimen for near 2 days. Hoping to discharge home with outpatient PEG plan once he recovers from COVID.
[2020-06-01] MEDS: Dexamethasone 4 MG TAB PO SCH (08:44)
[2020-06-01] MEDS: Escitalopram Oxalate 20 mg Tablet PO SCH (08:45)
[2020-06-01] MEDS: Ubidecarenone 50 MG CAP PO SCH (08:45)
[2020-06-01] MEDS: Multivit, Therapeutic 1 TAB PO SCH (08:45)
[2020-06-01] MEDS: Lisinopril 20 MG TAB PO SCH (08:45)
[2020-06-01] MEDS: Cholecalciferol 1,000 UNITS (25 MCG) TAB PO SCH (08:45)
[2020-06-01] MEDS: Ascorbic Acid 500 mg Chewable Tablet PO SCH (08:45)
[2020-06-01] MEDS: Gabapentin 100 MG CAP PO SCH ×2 (08:45→17:06)
[2020-06-01] MEDS: Pantoprazole 40 MG VIAL IVP SCH (08:46)
[2020-06-01] MEDS ORDERED: Lisinopril 20 MG TAB PO SCH (09:30)
[2020-06-01 16:58] VITALS: BP 183/82; TEMP 99
[2020-06-01] MEDS: Rivaroxaban 10 MG TAB PO SCH (17:06)
--- NOTE | 2020-06-01 22:16 | DIS ---
DATE OF ADMISSION: 05/20/2020 DATE OF DISCHARGE: 06/01/2020 CONSULTS: GI, Dr. Jett, Dr. Ede Dr. Case on 05/23. PROCEDURES: Modified barium swallow showing [place] diverticulum with aspiration noted. Chest x-ray consistent with COVID pneumonia. PRIMARY DIAGNOSIS: Metabolic encephalopathy and sepsis due to pneumonia. SECONDARY DIAGNOSES: Aspiration pneumonia, coronavirus disease pneumonia, dysphagia, chronic kidney disease stage 2, right ankle sprain, history of pulmonary embolism, hypertension, dementia, hyperlipidemia, benign prostatic hypertrophy, anxiety. DISCHARGE MEDICATIONS: 1. Vitamin C 500 mg p.o. daily. 2. Vitamin D 2000 units p.o. daily. 3. Celexa 20 mg p.o. daily. 4. Neurontin 100 mg p.o. t.i.d. 5. Lisinopril 30 mg p.o. daily. 6. Namenda 10 mg p.o. b.i.d. 7. Multivitamin one tablet p.o. daily. 8. Xarelto 20 mg p.o. daily. 9. Simvastatin 40 mg p.o. daily. 10. Flomax 0.4 mg p.o. daily. 11. Ubiquinol 100 mg p.o. b.i.d. 12. Klonopin 1 mg p.o. at bedtime p.r.n. 13. Colace 100 mg p.o. daily p.r.n. 14. Mucinex 600 mg p.o. b.i.d. p.r.n. 15. Lutein 20 mg p.o. daily. 16. MiraLAX 17 g p.o. daily p.r.n. Discontinued medications: Discontinued home lisinopril 20 mg, increased to lisinopril 30 mg. HISTORY OF PRESENT ILLNESS AND HOSPITAL COURSE: Patient is a 79-year-old male with past medical history of hypertension, hyperlipidemia, and dementia, who presented to the ED with fever and altered mental status. The patient's gave the history, which included the patient not being able to converse as normal and had a fever of 102 at home. Patient was transferred from an outside ED and given vancomycin and cefepime and fluid bolus. During hospital stay, patient was found to have evidence of COVID pneumonia. Patient tested positive at outside testing center on 05/18 per . COVID swab done at hospital and antibody tests were negative. Given chest x-ray and clinical picture, patient was likely still COVID positive. Concern for variant of COVID not picked up on by normal PCR testing. Also evidence of aspiration pneumonia with modified barium swallow showing [place] diverticulum as above. GI was consulted for this and recommended PEG tube placement. However, given intermittent fevers during hospitalization, they did not proceed with the operation. Patient was intermittently febrile to 101 that resolved with Tylenol. Patient's vital signs otherwise were persistently stable and patient overall did very well during the hospital stay. Inpatient rehab was recommended, however, felt more safe with home health and bringing patient home. Patient completed 7 days of cefepime and vancomycin therapy for pneumonia. He was also was on Decadron during the hospital stay. Blood culture and urine cultures were negative. Patient has history of surgery to fix diverticulum with Dr. Kendall and Dr. Benitez in 2003 per the . Patient's creatinine was stable during hospital stay at 1 to 1.1. During hospital stay patient was placed on diet with risk after discussion with and patient. The patient will be sent home with home oxygen and wheelchair with 's request. DISPOSITION: Stable. DISCHARGE INSTRUCTIONS: 1. Location: Home with home health nursing and physical therapy, oxygen therapy, and wheelchair. 2. Diet: Pureed, nectar thick diet with risk. 3. Activity as tolerated. 4. Please follow up with PCP, Dr. Cohn within 2 weeks. Can follow up with [facility] GI, Dr. Jett, Dr. Mera, and Dr. Elizalde, all saw the patient while in the hospital for followup of diverticula/PEG tube placement. Job ID: [id number] [facility]
[2020-06-02] MEDS ORDERED: Lisinopril 20 MG TAB PO SCH (09:00)
== END 2020-06-01 19:50 | disposition home health service (06) | DRG 871 ==
LOC: T4-A 07:41 → OBSVTOIN 11:05
PROVIDERS: ADMIT Family Medicine; ATTEND Family Medicine
DX: A41.89 Other specified sepsis (principal); U07.1 COVID-19; G93.41 Metabolic encephalopathy; J12.89 Other viral pneumonia; J69.0 Pneumonitis due to inhalation of food and vomit; N17.9 Acute kidney failure, unspecified; E78.5 Hyperlipidemia, unspecified; F03.90 Unspecified dementia, unspecified severity, without behavioral disturbance, psychotic disturbance, mood disturbance, and anxiety; G89.29 Other chronic pain; M54.9 Dorsalgia, unspecified; F41.9 Anxiety disorder, unspecified; S93.401A Sprain of unspecified ligament of right ankle, initial encounter; K59.00 Constipation, unspecified; N40.0 Benign prostatic hyperplasia without lower urinary tract symptoms; K21.9 Gastro-esophageal reflux disease without esophagitis; N18.2 Chronic kidney disease, stage 2 (mild); I12.9 Hypertensive chronic kidney disease with stage 1 through stage 4 chronic kidney disease, or unspecified chronic kidney disease; Z88.8 Allergy status to other drugs, medicaments and biological substances; Z79.899 Other long term (current) drug therapy; Z90.49 Acquired absence of other specified parts of digestive tract; Z87.891 Personal history of nicotine dependence; Z86.711 Personal history of pulmonary embolism; Z79.01 Long term (current) use of anticoagulants; R13.12 Dysphagia, oropharyngeal phase; K22.5 Diverticulum of esophagus, acquired
CPT/HCPCS: 36415; 71045; 74230; 80048; 80053; 80202; 82728; 83615; 83735; 84145; 85007; 85025; 85027; 85060; 85379; 85652; 86140; 86769; 87040; 87633; 87635; 93005; 93010; C9113; J0360; J0692; J3370; J3490; J7050; J8540; U0003

== ENCOUNTER 2020-06-20 13:12 | Emergency (ER) | payer MEDICARE ==
[2020-06-20] MEDS ORDERED: Vancomycin 1 GM/200 ML BAG ONE (13:42)
[2020-06-20] MEDS ORDERED: cefTRIAXone\\ROCEPHIN 2 GM VIAL ONE (13:42)
--- NOTE | 2020-06-20 13:47 | RAD ---
EXAM: CHEST ONE VIEW PORTABLE: 06/20/20 HISTORY: Hypotension. COMPARISON: 05/30/20 FINDINGS: Again noted are some patchy interstitial and ground glass opacity changes in both lungs but show an o verall improvement from the prior study. Dorsal column stimulator leads overlie the mid thoracic spin e. No significant new confluent pneumonia or pleural effusion or cardiomegaly. IMPRESSION: Persistent but overall improving bilateral patchy parenchymal changes, evidence for improving bilater al COVID pneumonia. POS: RRE
[2020-06-20 14:23] LABS: #Eosinphils 0.2 thou/uL (0.0-0.7); #Lymphocytes 1.2 thou/uL (1.20-3.40); #Monocytes 0.6 thou/uL (0.11-0.59); #Neutrophils 3.8 thou/uL (1.40-6.50); %Basophils 0.3 % (0.0-1.0); %Eosinophils 3.4 % (0.0-10.0); %Lymphocytes 21.3 % (21.0-51.0); %Monocytes 9.5 % (0.0-10.0); %Neutrophils 65.4 % (42.0-75.0); Hemoglobin 12.6 g/dL (14.0-18.0); Mean Corpuscular HGB CONC 32.7 g/dL (32.0-36.0); Mean Corpuscular Hemoglobin 31.3 pg (27.0-31.0); Mean Corpuscular Volume 95.7 fL (78.0-98.0); Mean Platelet Volume 11.7 fL (7.4-10.4); Platelet Count 132 thou/uL (130-400); RBC Distribution Width 12.9 % (11.5-14.5); Red Blood Cell (RBC) Count 4.03 mill/uL (4.70-6.10); White Blood Cell (WBC) Count 5.8 thou/uL (4.8-10.8)
[2020-06-20 15:43] LABS: Albumin 3.3 g/dL (3.4-4.8)
[2020-06-20 15:44] LABS: Chloride 105 mmol/L (98-107); Sodium 136 mmol/L (136-145)
[2020-06-20 15:45] LABS: Calcium 8.8 mg/dL (7.8-10.44)
[2020-06-20 15:46] LABS: Glucose 108 mg/dL (83-110); Protein, Total 6.3 g/dL (5.8-8.1)
[2020-06-20 15:47] LABS: Anion Gap 17 mmol/L (10-20); Carbon Dioxide 19 mmol/L (23-31)
[2020-06-20 15:48] LABS: Alkaline Phosphatase 88 U/L (40-110); Bilirubin, Total 0.4 mg/dL (0.2-1.2)
[2020-06-20 15:49] LABS: Calc. Creatinine Clearance 0 mL/min (70-130)
[2020-06-20 15:50] LABS: BUN (Urea Nitrogen) 30 mg/dL (8.4-25.7)
[2020-06-20 15:51] LABS: AST (SGOT) 31 U/L (5-34)
[2020-06-20 15:52] LABS: ALT (SGPT) 47 U/L (8-55); CK (CPK) 41 U/L (30-200)
[2020-06-20 16:13] LABS: Bilirubin Negative (Negative); Blood, Urine Negative (Negative); Clarity Clear (Clear); Glucose, Urine (Dipstick) Normal (Negative); Ketone, Urine Negative (Negative); Leukocyte Negative Leu/uL (Negative); Nitrite Negative (Negative); Protein, Urine (Dipstick) 20 mg/dL (Neg-Trace); Specific Gravity, Urine 1.025 (1.002-1.036); Urobilinogen Normal mg/dL (Less than 2); pH, Urine 6.5 (5.0-9.0)
--- NOTE | 2020-07-08 16:41 | EKG ---
Test Reason : HYPOTENSION Blood Pressure : / mmHG Vent. Rate : 060 BPM Atrial Rate : 060 BPM P-R Int : 196 ms QRS Dur : 098 ms QT Int : 460 ms P-R-T Axes : 013 -03 -15 degrees QTc Int : 460 ms Normal sinus rhythm Minimal voltage criteria for LVH, may be normal variant Cannot rule out Anterior infarct , age undetermined Abnormal ECG Confirmed by CAMI BERNARD, DESTINY Thomas ([id number]), news videotape editor KAELA PETER ([id number]) on 07/08/2020 4:40:59 PM Referred By: Confirmed By:DESTINY ALMANZA MD
== END 2020-06-20 18:21 | disposition home or self-care (01) ==
LOC: ERS 13:12
DX: I95.9 Hypotension, unspecified (principal); E86.0 Dehydration; Z79.899 Other long term (current) drug therapy; Z79.891 Long term (current) use of opiate analgesic; E78.5 Hyperlipidemia, unspecified; E78.00 Pure hypercholesterolemia, unspecified; I10 Essential (primary) hypertension
CPT/HCPCS: 36415; 51701; 71045; 80053; 81003; 82550; 83605; 84484; 85025; 87040; 87086; 93005; 96365; 96366; J0696; J3370

== ENCOUNTER 2020-10-10 10:56 | Outpatient (CLI) | payer MEDICARE | END 2020-10-10 10:57 | disposition home or self-care (01) | LOC: BICRAD 10:56 | PROVIDERS: ATTEND Internal Medicine Pulmonary Disease | DX: R06.00 Dyspnea, unspecified (principal); J98.6 Disorders of diaphragm | CPT/HCPCS: 71046 ==

== ENCOUNTER 2021-06-27 12:51 | Outpatient (CLI) | payer MEDICARE ==
[2021-06-28 08:57] LABS: SARS-CoV-2 PCR by NAA Not Detected (NotDetected)
== END 2021-06-27 12:52 | disposition home or self-care (01) ==
LOC: LABBT 12:51
PROVIDERS: ATTEND Family Medicine
DX: Z01.812 Encounter for preprocedural laboratory examination (principal); Z20.822 Contact with and (suspected) exposure to COVID-19
CPT/HCPCS: U0003; U0005

== ENCOUNTER 2021-06-29 12:52 | Outpatient (CLI) | payer MEDICARE | END 2021-06-29 12:53 | disposition home or self-care (01) | PROVIDERS: ATTEND Physician Assistant Medical | DX: R13.12 Dysphagia, oropharyngeal phase (principal); K22.5 Diverticulum of esophagus, acquired | CPT/HCPCS: 74230 ==

== ENCOUNTER 2023-04-14 13:51 | Inpatient (IN) | payer MEDICARE ==
[2023-04-14 15:21] LABS: #Eosinphils 0.1 thou/uL (0.0-0.7); #Monocytes 0.5 thou/uL (0.11-0.59); #Neutrophils 4.3 thou/uL (1.40-6.50); %Basophils 0.6 % (0.0-1.0); %Eosinophils 1.9 % (0.0-10.0); %Lymphocytes 22.7 % (21.0-51.0); %Monocytes 7.5 % (0.0-10.0); %Neutrophils 67.1 % (42.0-75.0); Hematocrit 41.9 % (42.0-52.0); Hemoglobin 13.6 g/dL (14.0-18.0); Mean Corpuscular HGB CONC 32.5 g/dL (32.0-36.0); Mean Corpuscular Hemoglobin 31.9 pg (27.0-31.0); Mean Corpuscular Volume 98.1 fl (78.0-98.0); Mean Platelet Volume 12.4 fL (7.4-10.4); Platelet Count 164 10x3/uL (130-400); RBC Distribution Width 13.2 % (11.5-14.5); Red Blood Cell (RBC) Count 4.27 mill/uL (4.70-6.10); White Blood Cell (WBC) Count 6.4 10x3/uL (4.8-10.8)
[2023-04-14 15:39] LABS: Bilirubin Negative (Negative); Blood, Urine Negative (Negative); CAUTI Indications for Culture Alt mental st,lethar; Clarity Turbid (Clear); Glucose, Urine (Dipstick) Normal (Negative); Ketone, Urine Negative (Negative); Leukocyte 500 Leu/uL (Negative); Nitrite Negative (Negative); Protein, Urine (Dipstick) 20 mg/dL (Neg-Trace); RBC/HPF 0-3 HPF (0-3); Specific Gravity, Urine 1.013 (1.002-1.036); Squamous Epithelial None Seen HPF (0-3); Urobilinogen Normal mg/dL (Less than 2); WBC/HPF Greater than 50 HPF (0-3)
[2023-04-14 15:41] LABS: Bacteria/HPF 1+ HPF (None Seen)
[2023-04-14 15:42] LABS: Urine Culture Reflex Yes Yes
[2023-04-14 15:52] LABS: Troponin I Less than 0.010 ng/mL (< 0.028)
[2023-04-14 15:53] LABS: ALT (SGPT) 19 U/L (8-55); AST (SGOT) 18 U/L (5-34); Albumin 4.1 g/dL (3.4-4.8); Alkaline Phosphatase 115 U/L (40-110); Anion Gap 17 mmol/L (10-20); BUN (Urea Nitrogen) 23 mg/dL (8.4-25.7); Bilirubin, Total 0.5 mg/dL (0.2-1.2); CK (CPK) 58 U/L (30-200); Calc. Creatinine Clearance 0 mL/min (70-130); Calcium 9.2 mg/dL (7.8-10.44); Carbon Dioxide 26 mmol/L (23-31); Chloride 103 mmol/L (98-107); Estimated GFR 83; Globulin 2.3 g/dL (2.4-3.5); Glucose 121 mg/dL (83-110); Potassium 4.8 mmol/L (3.5-5.1); Protein, Total 6.4 g/dL (5.8-8.1); Sodium 141 mmol/L (136-145)
[2023-04-14] MEDS ORDERED: cefTRIAXone (ROCEPHIN) 2 GM VIAL ONE (15:56)
[2023-04-14] MEDS ORDERED: Sodium Chloride 0.9% 100 ML ONE (15:57)
[2023-04-14] MEDS ORDERED: Acetaminophen 650 MG Suppository PR PRN (17:33)
[2023-04-14] MEDS ORDERED: Acetaminophen 325 MG TAB PO PRN (17:33)
[2023-04-14] MEDS ORDERED: Vancomycin (BATCH) 2 GM/500 ML BAG ONE (17:40)
[2023-04-14] MEDS ORDERED: Metoclopramide HCl 10 MG/2 ML VIAL IVP PRN (17:44)
[2023-04-14] MEDS ORDERED: Electrolyte Replacement Protocol 1 EACH FS SCH (17:45)
[2023-04-14] MEDS ORDERED: Sodium Chloride 0.9% 500 ML IV SCH (17:45)
[2023-04-14] MEDS ORDERED: Scopolamine 1 mg/72 hour Patch TOP SCH (19:00)
[2023-04-14 20:27] VITALS: BMI 31.1
[2023-04-14] MEDS ORDERED: clonazePAM 0.5 MG TAB PO SCH (21:00)
[2023-04-14] MEDS: Famotidine 20 MG TAB PO SCH (21:35)
[2023-04-14] MEDS: Lisinopril 5 MG TAB PO SCH (21:35)
[2023-04-14] MEDS: Tamsulosin HCl 0.4 MG CAP PO SCH (21:35)
[2023-04-14] MEDS: Atorvastatin Calcium 20 MG TAB PO SCH (21:35)
[2023-04-15 05:03] LABS: #Eosinphils 0.1 thou/uL (0.0-0.7); #Monocytes 0.8 thou/uL (0.11-0.59); #Neutrophils 5.7 thou/uL (1.40-6.50); %Basophils 0.5 % (0.0-1.0); %Eosinophils 1.6 % (0.0-10.0); %Lymphocytes 13.1 % (21.0-51.0); %Monocytes 10.3 % (0.0-10.0); %Neutrophils 74.1 % (42.0-75.0); Hematocrit 40.2 % (42.0-52.0); Mean Corpuscular HGB CONC 32.3 g/dL (32.0-36.0); Mean Corpuscular Hemoglobin 31.8 pg (27.0-31.0); Mean Corpuscular Volume 98.3 fl (78.0-98.0); Mean Platelet Volume 12.9 fL (7.4-10.4); Platelet Count 161 10x3/uL (130-400); Red Blood Cell (RBC) Count 4.09 mill/uL (4.70-6.10); White Blood Cell (WBC) Count 7.7 10x3/uL (4.8-10.8)
[2023-04-15] MEDS: Vancomycin (BATCH) 1.25 GM in Premix 1 BAG IVPB SCH ×2 (05:04→17:39)
[2023-04-15 05:26] LABS: Anion Gap 14 mmol/L (10-20); BUN (Urea Nitrogen) 20 mg/dL (8.4-25.7); Calc. Creatinine Clearance 99 mL/min (70-130); Carbon Dioxide 26 mmol/L (23-31); Chloride 103 mmol/L (98-107); Potassium 4.5 mmol/L (3.5-5.1); Sodium 138 mmol/L (136-145)
[2023-04-15 05:27] LABS: ALT (SGPT) 18 U/L (8-55); AST (SGOT) 20 U/L (5-34); Alkaline Phosphatase 116 U/L (40-110); Bilirubin, Total 0.5 mg/dL (0.2-1.2); Calcium 9.3 mg/dL (7.8-10.44); Estimated GFR 87; Globulin 2.8 g/dL (2.4-3.5); Glucose 141 mg/dL (83-110); Magnesium 1.9 mg/dL (1.6-2.6); Protein, Total 6.8 g/dL (5.8-8.1)
[2023-04-15] MEDS ORDERED: Magnesium 2 GM/50 ML(in water) 2 GM in Premix 1 BAG IVPB SCH (08:00)
[2023-04-15] MEDS: Rivaroxaban 10 MG TAB PO SCH (08:16)
[2023-04-15] MEDS: Famotidine 20 MG TAB PO SCH ×2 (08:17→20:47)
[2023-04-15] MEDS: Escitalopram Oxalate 20 mg Tablet PO SCH (08:17)
[2023-04-15] MEDS ORDERED: Vancomycin 1 GM in Premix 1 BAG IVPB SCH (09:00)
[2023-04-15] MEDS ORDERED: Lisinopril 5 MG TAB PO SCH (09:00)
[2023-04-15] MEDS ORDERED: Gabapentin 100 MG CAP PO SCH (11:30)
[2023-04-15] MEDS: cefTRIAXone\\ROCEPHIN 1 GM in Sodium Chloride 0.9% 100 ML IVPB SCH (15:08)
[2023-04-15] MEDS: Guaifenesin DM 100-10/5 ML UDCUP PO PRN (20:47)
[2023-04-15] MEDS: Tamsulosin HCl 0.4 MG CAP PO SCH (20:47)
[2023-04-15] MEDS: Lisinopril 5 MG TAB PO SCH (20:47)
[2023-04-15] MEDS: Atorvastatin Calcium 20 MG TAB PO SCH (20:47)
[2023-04-15] MEDS: Melatonin 3 MG TAB PO PRN (20:51)
[2023-04-15] MEDS: Ipratropium/Albuterol 3 ML NEB NEB PRN (21:23)
[2023-04-16 05:19] LABS: #Eosinphils 0.2 thou/uL (0.0-0.7); #Monocytes 0.8 thou/uL (0.11-0.59); #Neutrophils 5.5 thou/uL (1.40-6.50); %Basophils 0.4 % (0.0-1.0); %Eosinophils 1.9 % (0.0-10.0); %Neutrophils 71.4 % (42.0-75.0); Hematocrit 36.7 % (42.0-52.0); Mean Corpuscular HGB CONC 32.7 g/dL (32.0-36.0); Mean Corpuscular Hemoglobin 31.6 pg (27.0-31.0); Mean Corpuscular Volume 96.6 fl (78.0-98.0); Platelet Count 152 10x3/uL (130-400); RBC Distribution Width 13.2 % (11.5-14.5); White Blood Cell (WBC) Count 7.7 10x3/uL (4.8-10.8)
[2023-04-16 05:41] LABS: Vancomycin, Trough 21.9 ug/mL
[2023-04-16 05:42] LABS: Anion Gap 11 mmol/L (10-20); BUN (Urea Nitrogen) 22 mg/dL (8.4-25.7); Calc. Creatinine Clearance 94 mL/min (70-130); Calcium 8.6 mg/dL (7.8-10.44); Carbon Dioxide 27 mmol/L (23-31); Chloride 104 mmol/L (98-107); Estimated GFR 84; Glucose 145 mg/dL (83-110); Potassium 4.3 mmol/L (3.5-5.1); Sodium 138 mmol/L (136-145)
[2023-04-16] MEDS: Vancomycin (BATCH) 1.25 GM in Premix 1 BAG IVPB SCH (06:21)
[2023-04-16] MEDS ORDERED: Sodium Chloride 0.9% 1,000 ML IV SCH (09:00)
[2023-04-16] MEDS: Vancomycin 1 GM in Premix 1 BAG IVPB SCH ×2 (09:31→20:52)
[2023-04-16] MEDS: Famotidine 20 MG TAB PO SCH ×2 (09:32→20:52)
[2023-04-16] MEDS: Rivaroxaban 10 MG TAB PO SCH (09:32)
[2023-04-16] MEDS: Gabapentin 100 MG CAP PO SCH (09:32)
[2023-04-16] MEDS: Escitalopram Oxalate 20 mg Tablet PO SCH (09:32)
[2023-04-16] MEDS: Guaifenesin DM 100-10/5 ML UDCUP PO PRN ×3 (10:51→20:52)
[2023-04-16] MEDS: Ipratropium/Albuterol 3 ML NEB NEB PRN ×2 (15:39→23:16)
[2023-04-16] MEDS: cefTRIAXone\\ROCEPHIN 1 GM in Sodium Chloride 0.9% 100 ML IVPB SCH (16:06)
[2023-04-16] MEDS: Tamsulosin HCl 0.4 MG CAP PO SCH (20:52)
[2023-04-16] MEDS: Melatonin 3 MG TAB PO PRN (20:52)
[2023-04-16] MEDS: Atorvastatin Calcium 20 MG TAB PO SCH (20:52)
[2023-04-16] MEDS: Lisinopril 5 MG TAB PO SCH (20:52)
[2023-04-16] MEDS ORDERED: Polyethylene Glycol 3350 17 GM Packet PER TUBE SCH (23:00)
[2023-04-17] MEDS: Guaifenesin DM 100-10/5 ML UDCUP PO PRN ×2 (05:54→21:21)
[2023-04-17] MEDS: Escitalopram Oxalate 20 mg Tablet PO SCH (09:58)
[2023-04-17] MEDS: Famotidine 20 MG TAB PO SCH ×2 (09:58→21:01)
[2023-04-17] MEDS: Gabapentin 100 MG CAP PO SCH (09:58)
[2023-04-17] MEDS: Rivaroxaban 10 MG TAB PO SCH (09:58)
[2023-04-17] MEDS ORDERED: Scopolamine 1 mg/72 hour Patch TD SCH (10:00)
[2023-04-17] MEDS: Lorazepam 0.5 MG TAB PO SCH ×2 (10:00→16:06)
[2023-04-17] MEDS: Vancomycin 1 GM in Premix 1 BAG IVPB SCH (10:12)
[2023-04-17] MEDS: cefTRIAXone\\ROCEPHIN 1 GM in Sodium Chloride 0.9% 100 ML IVPB SCH (16:05)
[2023-04-17] MEDS: Atorvastatin Calcium 20 MG TAB PO SCH (21:00)
[2023-04-17] MEDS: Lisinopril 5 MG TAB PO SCH (21:00)
[2023-04-17] MEDS ORDERED: clonazePAM 0.5 MG TAB PO SCH (21:00)
[2023-04-17] MEDS: Tamsulosin HCl 0.4 MG CAP PO SCH (21:01)
[2023-04-17] MEDS: clonazePAM 1 MG TAB PO SCH (21:01)
[2023-04-18] MEDS: Gabapentin 100 MG CAP PO SCH (10:58)
[2023-04-18] MEDS: Escitalopram Oxalate 20 mg Tablet PO SCH (10:58)
[2023-04-18] MEDS: Famotidine 20 MG TAB PO SCH ×2 (10:58→21:01)
[2023-04-18] MEDS: Rivaroxaban 10 MG TAB PO SCH (11:03)
[2023-04-18] MEDS: Guaifenesin DM 100-10/5 ML UDCUP PO PRN (16:47)
[2023-04-18] MEDS: cefTRIAXone\\ROCEPHIN 1 GM in Sodium Chloride 0.9% 100 ML IVPB SCH (16:48)
[2023-04-18] MEDS: Tamsulosin HCl 0.4 MG CAP PO SCH (21:01)
[2023-04-18] MEDS: Lisinopril 5 MG TAB PO SCH (21:01)
[2023-04-18] MEDS: clonazePAM 1 MG TAB PO SCH (21:01)
[2023-04-18] MEDS: Atorvastatin Calcium 20 MG TAB PO SCH (21:01)
[2023-04-19] MEDS: Guaifenesin DM 100-10/5 ML UDCUP PO PRN ×3 (02:15→22:30)
[2023-04-19 06:40] LABS: #Eosinphils 0.3 thou/uL (0.0-0.7); #Monocytes 0.7 thou/uL (0.11-0.59); %Basophils 0.4 % (0.0-1.0); %Lymphocytes 24.1 % (21.0-51.0); %Monocytes 10.9 % (0.0-10.0); %Neutrophils 59.3 % (42.0-75.0); Hematocrit 37.1 % (42.0-52.0); Hemoglobin 12.1 g/dL (14.0-18.0); Mean Corpuscular HGB CONC 32.6 g/dL (32.0-36.0); Mean Corpuscular Hemoglobin 31.9 pg (27.0-31.0); Mean Corpuscular Volume 97.9 fl (78.0-98.0); Platelet Count 165 10x3/uL (130-400); RBC Distribution Width 13.2 % (11.5-14.5); Red Blood Cell (RBC) Count 3.79 mill/uL (4.70-6.10); White Blood Cell (WBC) Count 6.8 10x3/uL (4.8-10.8)
[2023-04-19 06:54] LABS: Anion Gap 13 mmol/L (10-20); BUN (Urea Nitrogen) 20 mg/dL (8.4-25.7); Calc. Creatinine Clearance 97 mL/min (70-130); Carbon Dioxide 28 mmol/L (23-31); Chloride 102 mmol/L (98-107); Estimated GFR 87; Glucose 142 mg/dL (83-110); Sodium 139 mmol/L (136-145)
[2023-04-19] MEDS: Gabapentin 100 MG CAP PO SCH (10:57)
[2023-04-19] MEDS: Rivaroxaban 10 MG TAB PO SCH (10:58)
[2023-04-19] MEDS: Famotidine 20 MG TAB PO SCH ×2 (10:58→22:27)
[2023-04-19] MEDS: Escitalopram Oxalate 20 mg Tablet PO SCH (10:58)
[2023-04-19] MEDS ORDERED: Scopolamine 1 mg/72 hour Patch TD SCH ×2 (14:00→23:59)
[2023-04-19] MEDS: cefTRIAXone\\ROCEPHIN 1 GM in Sodium Chloride 0.9% 100 ML IVPB SCH (15:47)
[2023-04-19] MEDS: Lisinopril 5 MG TAB PO SCH (22:26)
[2023-04-19] MEDS: clonazePAM 1 MG TAB PO SCH (22:26)
[2023-04-19] MEDS: Atorvastatin Calcium 20 MG TAB PO SCH (22:27)
[2023-04-19] MEDS: Tamsulosin HCl 0.4 MG CAP PO SCH (22:27)
[2023-04-19] MEDS: Melatonin 3 MG TAB PO PRN (22:31)
[2023-04-20 04:51] LABS: #Eosinphils 0.3 thou/uL (0.0-0.7); #Monocytes 0.9 thou/uL (0.11-0.59); #Neutrophils 4.5 thou/uL (1.40-6.50); %Basophils 0.5 % (0.0-1.0); %Eosinophils 4.5 % (0.0-10.0); %Lymphocytes 24.5 % (21.0-51.0); %Monocytes 11.6 % (0.0-10.0); %Neutrophils 58.5 % (42.0-75.0); Hematocrit 37.6 % (42.0-52.0); Hemoglobin 12.3 g/dL (14.0-18.0); Mean Corpuscular HGB CONC 32.7 g/dL (32.0-36.0); Mean Corpuscular Hemoglobin 31.9 pg (27.0-31.0); Mean Corpuscular Volume 97.7 fl (78.0-98.0); Platelet Count 173 10x3/uL (130-400); RBC Distribution Width 13.1 % (11.5-14.5); Red Blood Cell (RBC) Count 3.85 mill/uL (4.70-6.10); White Blood Cell (WBC) Count 7.6 10x3/uL (4.8-10.8)
[2023-04-20 05:13] LABS: Anion Gap 12 mmol/L (10-20); BUN (Urea Nitrogen) 32 mg/dL (8.4-25.7); Calc. Creatinine Clearance 95 mL/min (70-130); Calcium 9.1 mg/dL (7.8-10.44); Carbon Dioxide 29 mmol/L (23-31); Chloride 101 mmol/L (98-107); Estimated GFR 85; Glucose 188 mg/dL (83-110); Sodium 138 mmol/L (136-145)
[2023-04-20] MEDS: Rivaroxaban 10 MG TAB PO SCH (10:23)
[2023-04-20] MEDS: Gabapentin 100 MG CAP PO SCH (10:23)
[2023-04-20] MEDS: Famotidine 20 MG TAB PO SCH ×2 (10:23→20:47)
[2023-04-20] MEDS: Escitalopram Oxalate 20 mg Tablet PO SCH (10:25)
[2023-04-20] MEDS: cefTRIAXone\\ROCEPHIN 1 GM in Sodium Chloride 0.9% 100 ML IVPB SCH (17:26)
[2023-04-20] MEDS: Guaifenesin DM 100-10/5 ML UDCUP PO PRN (17:36)
[2023-04-20] MEDS: Atorvastatin Calcium 20 MG TAB PO SCH (20:43)
[2023-04-20] MEDS: Lisinopril 5 MG TAB PO SCH (20:43)
[2023-04-20] MEDS: Tamsulosin HCl 0.4 MG CAP PO SCH (20:43)
[2023-04-20] MEDS: clonazePAM 1 MG TAB PO SCH (20:47)
[2023-04-21] MEDS: Melatonin 3 MG TAB PO PRN ×2 (01:23→21:48)
[2023-04-21 05:53] LABS: #Basophils 0.1 thou/uL (0.0-0.2); #Eosinphils 0.3 thou/uL (0.0-0.7); #Monocytes 0.8 thou/uL (0.11-0.59); #Neutrophils 5.5 thou/uL (1.40-6.50); %Basophils 0.7 % (0.0-1.0); %Eosinophils 3.9 % (0.0-10.0); %Lymphocytes 23.4 % (21.0-51.0); %Monocytes 8.8 % (0.0-10.0); %Neutrophils 62.6 % (42.0-75.0); Hematocrit 38.3 % (42.0-52.0); Hemoglobin 12.7 g/dL (14.0-18.0); Mean Corpuscular HGB CONC 33.2 g/dL (32.0-36.0); Mean Corpuscular Hemoglobin 32.3 pg (27.0-31.0); Mean Corpuscular Volume 97.5 fl (78.0-98.0); Mean Platelet Volume 12.4 fL (7.4-10.4); Platelet Count 184 10x3/uL (130-400); Red Blood Cell (RBC) Count 3.93 mill/uL (4.70-6.10); White Blood Cell (WBC) Count 8.8 10x3/uL (4.8-10.8)
[2023-04-21 06:56] LABS: Anion Gap 13 mmol/L (10-20); BUN (Urea Nitrogen) 30 mg/dL (8.4-25.7); Calc. Creatinine Clearance 100 mL/min (70-130); Calcium 9.2 mg/dL (7.8-10.44); Carbon Dioxide 28 mmol/L (23-31); Chloride 100 mmol/L (98-107); Estimated GFR 87; Glucose 140 mg/dL (83-110); Potassium 4.2 mmol/L (3.5-5.1); Sodium 137 mmol/L (136-145)
[2023-04-21] MEDS: Gabapentin 100 MG CAP PO SCH (09:04)
[2023-04-21] MEDS: Escitalopram Oxalate 20 mg Tablet PO SCH (09:05)
[2023-04-21] MEDS: Famotidine 20 MG TAB PO SCH ×2 (09:05→20:50)
[2023-04-21] MEDS: Rivaroxaban 10 MG TAB PO SCH (09:05)
[2023-04-21] MEDS: Guaifenesin DM 100-10/5 ML UDCUP PO PRN ×2 (09:09→20:51)
[2023-04-21] MEDS ORDERED: Bisacodyl 10 MG SUPP PR PRN (11:28)
[2023-04-21] MEDS: cefTRIAXone\\ROCEPHIN 1 GM in Sodium Chloride 0.9% 100 ML IVPB SCH (17:06)
[2023-04-21] MEDS: Atorvastatin Calcium 20 MG TAB PO SCH (20:50)
[2023-04-21] MEDS: Lisinopril 5 MG TAB PO SCH (20:50)
[2023-04-21] MEDS: clonazePAM 1 MG TAB PO SCH (20:50)
[2023-04-21] MEDS: Tamsulosin HCl 0.4 MG CAP PO SCH (20:50)
[2023-04-22] MEDS: Guaifenesin DM 100-10/5 ML UDCUP PO PRN ×4 (04:54→21:12)
[2023-04-22 05:25] LABS: #Basophils 0.1 thou/uL (0.0-0.2); #Eosinphils 0.3 thou/uL (0.0-0.7); #Monocytes 0.7 thou/uL (0.11-0.59); #Neutrophils 5.6 thou/uL (1.40-6.50); %Basophils 0.7 % (0.0-1.0); %Eosinophils 3.2 % (0.0-10.0); %Lymphocytes 22.6 % (21.0-51.0); %Monocytes 8.2 % (0.0-10.0); %Neutrophils 64.3 % (42.0-75.0); Hematocrit 39.5 % (42.0-52.0); Hemoglobin 12.9 g/dL (14.0-18.0); Mean Corpuscular HGB CONC 32.7 g/dL (32.0-36.0); Mean Corpuscular Hemoglobin 31.9 pg (27.0-31.0); Mean Corpuscular Volume 97.5 fl (78.0-98.0); Platelet Count 188 10x3/uL (130-400); Red Blood Cell (RBC) Count 4.05 mill/uL (4.70-6.10); White Blood Cell (WBC) Count 8.7 10x3/uL (4.8-10.8)
[2023-04-22 05:47] LABS: Anion Gap 14 mmol/L (10-20); BUN (Urea Nitrogen) 34 mg/dL (8.4-25.7); Calc. Creatinine Clearance 92 mL/min (70-130); Calcium 9.4 mg/dL (7.8-10.44); Carbon Dioxide 28 mmol/L (23-31); Chloride 99 mmol/L (98-107); Estimated GFR 82; Glucose 154 mg/dL (83-110); Potassium 4.3 mmol/L (3.5-5.1); Sodium 137 mmol/L (136-145)
[2023-04-22] MEDS: Rivaroxaban 10 MG TAB PO SCH (10:05)
[2023-04-22] MEDS: Gabapentin 100 MG CAP PO SCH (10:05)
[2023-04-22] MEDS: Famotidine 20 MG TAB PO SCH ×2 (10:05→21:13)
[2023-04-22] MEDS: Senokot S 8.6-50 MG TAB PO PRN (10:05)
[2023-04-22] MEDS: Escitalopram Oxalate 20 mg Tablet PO SCH (10:05)
[2023-04-22] MEDS: cefTRIAXone\\ROCEPHIN 1 GM in Sodium Chloride 0.9% 100 ML IVPB SCH (15:51)
[2023-04-22] MEDS: Atorvastatin Calcium 20 MG TAB PO SCH (21:12)
[2023-04-22] MEDS: clonazePAM 1 MG TAB PO SCH (21:13)
[2023-04-22] MEDS: Tamsulosin HCl 0.4 MG CAP PO SCH (21:13)
[2023-04-22] MEDS: Lisinopril 5 MG TAB PO SCH (21:14)
[2023-04-22] MEDS: Melatonin 3 MG TAB PO PRN (21:14)
[2023-04-22] MEDS: Ipratropium/Albuterol 3 ML NEB NEB PRN (22:04)
[2023-04-23 05:21] LABS: %Basophils 0.6 % (0.0-1.0); %Eosinophils 2.4 % (0.0-10.0); %Lymphocytes 22.3 % (21.0-51.0); %Monocytes 8.2 % (0.0-10.0); %Neutrophils 65.9 % (42.0-75.0); Hematocrit 40.7 % (42.0-52.0); Hemoglobin 13.3 g/dL (14.0-18.0); Mean Corpuscular HGB CONC 32.7 g/dL (32.0-36.0); Mean Corpuscular Volume 98.1 fl (78.0-98.0); Mean Platelet Volume 12.5 fL (7.4-10.4); Platelet Count 156 10x3/uL (130-400); Red Blood Cell (RBC) Count 4.15 mill/uL (4.70-6.10); White Blood Cell (WBC) Count 10.8 10x3/uL (4.8-10.8)
[2023-04-23 05:22] LABS: #Basophils 0.1 thou/uL (0.0-0.2); #Eosinphils 0.3 thou/uL (0.0-0.7); #Monocytes 0.9 thou/uL (0.11-0.59); #Neutrophils 7.1 thou/uL (1.40-6.50)
[2023-04-23 05:44] LABS: Anion Gap 21 mmol/L (10-20); BUN (Urea Nitrogen) 37 mg/dL (8.4-25.7); Calc. Creatinine Clearance 88 mL/min (70-130); Calcium 9.3 mg/dL (7.8-10.44); Carbon Dioxide 20 mmol/L (23-31); Chloride 102 mmol/L (98-107); Estimated GFR 78; Glucose 149 mg/dL (83-110); Potassium 5.5 mmol/L (3.5-5.1); Sodium 137 mmol/L (136-145)
[2023-04-23] MEDS: Escitalopram Oxalate 20 mg Tablet PO SCH (08:24)
[2023-04-23] MEDS: Famotidine 20 MG TAB PO SCH ×2 (08:25→20:39)
[2023-04-23] MEDS: Gabapentin 100 MG CAP PO SCH (08:25)
[2023-04-23] MEDS: Rivaroxaban 10 MG TAB PO SCH (08:26)
[2023-04-23] MEDS: Guaifenesin DM 100-10/5 ML UDCUP PO PRN ×2 (08:28→20:38)
[2023-04-23] MEDS: cefTRIAXone\\ROCEPHIN 1 GM in Sodium Chloride 0.9% 100 ML IVPB SCH (16:37)
[2023-04-23] MEDS: clonazePAM 1 MG TAB PO SCH (20:39)
[2023-04-23] MEDS: Tamsulosin HCl 0.4 MG CAP PO SCH (20:39)
[2023-04-23] MEDS: Atorvastatin Calcium 20 MG TAB PO SCH (20:39)
[2023-04-23] MEDS: Melatonin 3 MG TAB PO PRN (20:39)
[2023-04-24] MEDS ORDERED: Scopolamine 1 mg/72 hour Patch TD SCH (03:30)
[2023-04-24] MEDS: Guaifenesin DM 100-10/5 ML UDCUP PO PRN ×2 (03:32→09:14)
[2023-04-24] MEDS: Rivaroxaban 10 MG TAB PO SCH (09:02)
[2023-04-24] MEDS: Gabapentin 100 MG CAP PO SCH (09:02)
[2023-04-24] MEDS: Famotidine 20 MG TAB PO SCH ×2 (09:02→21:45)
[2023-04-24] MEDS: Escitalopram Oxalate 20 mg Tablet PO SCH (09:02)
[2023-04-24 09:06] LABS: #Eosinphils 0.3 thou/uL (0.0-0.7); #Monocytes 0.6 thou/uL (0.11-0.59); #Neutrophils 4.5 thou/uL (1.40-6.50); %Basophils 0.6 % (0.0-1.0); %Eosinophils 4.3 % (0.0-10.0); %Monocytes 8.7 % (0.0-10.0); %Neutrophils 62.8 % (42.0-75.0); Hematocrit 38.2 % (42.0-52.0); Hemoglobin 12.4 g/dL (14.0-18.0); Mean Corpuscular HGB CONC 32.5 g/dL (32.0-36.0); Mean Corpuscular Hemoglobin 31.7 pg (27.0-31.0); Mean Corpuscular Volume 97.7 fl (78.0-98.0); Mean Platelet Volume 12.1 fL (7.4-10.4); Platelet Count 187 10x3/uL (130-400); Red Blood Cell (RBC) Count 3.91 mill/uL (4.70-6.10); White Blood Cell (WBC) Count 7.1 10x3/uL (4.8-10.8)
[2023-04-24 09:10] LABS: Anion Gap 13 mmol/L (10-20); BUN (Urea Nitrogen) 36 mg/dL (8.4-25.7); Calc. Creatinine Clearance 91 mL/min (70-130); Calcium 9.2 mg/dL (7.8-10.44); Carbon Dioxide 29 mmol/L (23-31); Chloride 100 mmol/L (98-107); Estimated GFR 81; Glucose 141 mg/dL (83-110); Potassium 4.3 mmol/L (3.5-5.1); Sodium 138 mmol/L (136-145)
[2023-04-24] MEDS: cefTRIAXone\\ROCEPHIN 1 GM in Sodium Chloride 0.9% 100 ML IVPB SCH (16:48)
[2023-04-24] MEDS: Tamsulosin HCl 0.4 MG CAP PO SCH (21:43)
[2023-04-24] MEDS: clonazePAM 1 MG TAB PO SCH (21:43)
[2023-04-24] MEDS: Atorvastatin Calcium 20 MG TAB PO SCH (21:45)
[2023-04-24] MEDS: Melatonin 3 MG TAB PO PRN (21:45)
[2023-04-25 09:44] LABS: #Basophils 0.1 thou/uL (0.0-0.2); #Eosinphils 0.4 thou/uL (0.0-0.7); #Monocytes 0.6 thou/uL (0.11-0.59); #Neutrophils 4.3 thou/uL (1.40-6.50); %Basophils 0.7 % (0.0-1.0); %Eosinophils 5.2 % (0.0-10.0); %Lymphocytes 22.6 % (21.0-51.0); %Monocytes 8.7 % (0.0-10.0); %Neutrophils 62.2 % (42.0-75.0); Hematocrit 39.3 % (42.0-52.0); Mean Corpuscular HGB CONC 33.1 g/dL (32.0-36.0); Mean Corpuscular Hemoglobin 31.8 pg (27.0-31.0); Mean Corpuscular Volume 96.1 fl (78.0-98.0); Mean Platelet Volume 11.9 fL (7.4-10.4); Platelet Count 181 10x3/uL (130-400); RBC Distribution Width 12.8 % (11.5-14.5); Red Blood Cell (RBC) Count 4.09 mill/uL (4.70-6.10); White Blood Cell (WBC) Count 6.9 10x3/uL (4.8-10.8)
[2023-04-25 10:10] VITALS: BP 139/64; TEMP 97.6
[2023-04-25] MEDS: Senokot S 8.6-50 MG TAB PO PRN (10:11)
[2023-04-25] MEDS: Escitalopram Oxalate 20 mg Tablet PO SCH (10:11)
[2023-04-25] MEDS: Gabapentin 100 MG CAP PO SCH (10:12)
[2023-04-25] MEDS: Famotidine 20 MG TAB PO SCH (10:12)
[2023-04-25] MEDS: Rivaroxaban 10 MG TAB PO SCH (10:13)
[2023-04-25 10:38] LABS: Anion Gap 13 mmol/L (10-20); BUN (Urea Nitrogen) 28 mg/dL (8.4-25.7); Calc. Creatinine Clearance 93 mL/min (70-130); Calcium 9.2 mg/dL (7.8-10.44); Carbon Dioxide 31 mmol/L (23-31); Chloride 98 mmol/L (98-107); Estimated GFR 83; Glucose 134 mg/dL (83-110); Potassium 4.4 mmol/L (3.5-5.1); Sodium 138 mmol/L (136-145)
[2023-04-25] MEDS: Guaifenesin DM 100-10/5 ML UDCUP PO PRN (10:57)
[2023-04-25] MEDS: cefTRIAXone\\ROCEPHIN 1 GM in Sodium Chloride 0.9% 100 ML IVPB SCH (15:36)
== END 2023-04-25 17:05 | disposition home or self-care (01) | DRG 689 ==
LOC: ERS 13:51 → SJJU 16:52
PROVIDERS: ADMIT Internal Medicine; ATTEND Internal Medicine
PROC: 0T9B70Z Drainage of Bladder with Drainage Device, Via Natural or Artificial Opening (ICD-10-PCS; principal; 2023-04-18)
DX: N39.0 Urinary tract infection, site not specified (principal); G92.8 Other toxic encephalopathy; F19.239 Other psychoactive substance dependence with withdrawal, unspecified; E78.5 Hyperlipidemia, unspecified; I10 Essential (primary) hypertension; G89.29 Other chronic pain; F03.90 Unspecified dementia, unspecified severity, without behavioral disturbance, psychotic disturbance, mood disturbance, and anxiety; F32.A Depression, unspecified; I73.9 Peripheral vascular disease, unspecified; E78.00 Pure hypercholesterolemia, unspecified; R33.9 Retention of urine, unspecified; E87.5 Hyperkalemia; E86.0 Dehydration; R00.1 Bradycardia, unspecified; G62.9 Polyneuropathy, unspecified; Z98.890 Other specified postprocedural states; Z90.49 Acquired absence of other specified parts of digestive tract; Z87.891 Personal history of nicotine dependence; Z88.7 Allergy status to serum and vaccine; Z91.09 Other allergy status, other than to drugs and biological substances; Z79.899 Other long term (current) drug therapy
CPT/HCPCS: 36415; 51701; 70450; 71045; 80048; 80053; 80202; 81001; 82550; 83605; 83735; 84484; 85025; 87040; 87077; 87086; 87186; 93005; 94640; 96365; 96367; J0696; J3370; J3370-JW; J3475; J3490; J7050; J7620

== ENCOUNTER 2023-09-28 15:26 | Inpatient (IN) | payer MEDICARE ==
[~2023-09-28 15:26] MED LIST: Iopamidol-370 76% 500 ML MDV (1 ML CHARGE) ONE
[2023-09-28] MEDS ORDERED: Ipratropium/Albuterol 3 ML NEB ONE (16:41)
[2023-09-28] MEDS ORDERED: Dexamethasone 10 MG/ML VIAL ONE (16:47)
[2023-09-28 16:48] LABS: #Basophils Less than 0.03 10x3/uL (0.0-0.2); #Eosinphils Less than 0.03 10x3/uL (0.0-0.7); %Basophils 0.2 % (0.0-1.0); %Eosinophils 0.2 % (0.0-10.0); %Lymphocytes 2.7 % (21.0-51.0); %Monocytes 4.8 % (0.0-10.0); %Neutrophils 91.9 % (42.0-75.0); Hematocrit 43.2 % (42.0-52.0); Hemoglobin 14.1 g/dL (14.0-18.0); Mean Corpuscular HGB CONC 32.6 g/dL (32.0-36.0); Mean Corpuscular Hemoglobin 31.1 pg (27.0-31.0); Mean Corpuscular Volume 95.2 fL (78.0-98.0); Mean Platelet Volume 12.7 fL (7.4-10.4); Platelet Count 144 10x3/uL (130-400); RBC Distribution Width 12.5 % (11.5-14.5); Red Blood Cell (RBC) Count 4.54 mill/uL (4.70-6.10)
[2023-09-28] MEDS ORDERED: Magnesium 2 GM/50 ML BAG (IN WATER) ONE (16:49)
[2023-09-28] MEDS ORDERED: Albuterol 2.5 MG (3 mL) NEB ONE (16:51)
[2023-09-28 16:57] LABS: Actual Bicarbonate (HCO3a) 25.6 mEq/L (22-28); Analyzer IN Cardio ER; Base Excess (BEa) 0.6 mEq/L (-2.0 to +3.0); CO2 Tension 42.7 mmHg (35.0-45.0); Calcium, Ionized (arterial) 1.19 mmol/L (1.12-1.30); Carboxyhemoglobin (COHb) 0.7 gm% (0.0-3.0); Hematocrit-ABG 42 % (42.0-52.0); Hemoglobin (Hb) 14.4 g/dL (14.0-18.0); O2 Tension (PaO2), arterial 63.3 mmHg (> 60.0); Potassium - ABG Lab 4.27 mmol/L (3.70-5.30); pH, Arterial 7.396 (7.35-7.45)
[2023-09-28 16:58] LABS: Puncture Site RRA
[2023-09-28 17:02] LABS: Anion Gap 15 mmol/L (10-20); Globulin 2.9 g/dL (2.4-3.5)
[2023-09-28 17:06] LABS: ALT (SGPT) 19 U/L (8-55); AST (SGOT) 20 U/L (5-34); Alkaline Phosphatase 99 U/L (40-110); BUN (Urea Nitrogen) 25 mg/dL (8.4-25.7); Bilirubin, Total 0.6 mg/dL (0.2-1.2); Calc. Creatinine Clearance 0 mL/min (70-130); Calcium 9.5 mg/dL (7.8-10.44); Carbon Dioxide 26 mmol/L (23-31); Chloride 101 mmol/L (98-107); Estimated GFR 64; Glucose 215 mg/dL (83-110); Lipase 13 U/L (8-78); Potassium 4.5 mmol/L (3.5-5.1); Protein, Total 6.9 g/dL (5.8-8.1); Sodium 137 mmol/L (136-145)
[2023-09-28] MEDS ORDERED: Cefepime 2 GM VIAL ONE (19:14)
[2023-09-28] MEDS ORDERED: Sodium Chloride 0.9% 100 ML ONE (19:15)
[2023-09-28 19:49] LABS: Lactic Acid 5.6 mmol/L (0.5-2.2)
[2023-09-28] MEDS ORDERED: Ondansetron PF 4 MG/2 ML Vial IVP PRN (20:30)
[2023-09-28] MEDS ORDERED: Acetaminophen 650 MG Suppository PR PRN (20:30)
[2023-09-28] MEDS ORDERED: Ondansetron ODT 4 MG TAB PO PRN (20:30)
[2023-09-28 20:35] LABS: Influenza A by NAA Not Detected (NotDetected); Influenza B by NAA Not Detected (NotDetected); SARS-CoV-2 NAA Rapid Test Not Detected (NotDetected)
[2023-09-28] MEDS ORDERED: Ipratropium/Albuterol 3 ML NEB NEB PRN (22:05)
[2023-09-28] MEDS: Ipratropium/Albuterol 3 ML NEB NEB SCH (22:44)
[2023-09-28] MEDS: Doxycycline 100 MG in Sodium Chloride 0.9% 100 ML IVPB SCH (23:08)
[2023-09-28] MEDS: Sodium Chloride 0.9% 1,000 ML IV SCH (23:09)
[2023-09-29 01:10] VITALS: BMI 29.8
[2023-09-29 01:27] LABS: Lactic Acid 4.8 mmol/L (0.5-2.2)
[2023-09-29 05:19] LABS: #Basophils Less than 0.03 10x3/uL (0.0-0.2); #Eosinphils Less than 0.03 10x3/uL (0.0-0.7); %Basophils 0.1 % (0.0-1.0); %Lymphocytes 2.9 % (21.0-51.0); %Monocytes 1.5 % (0.0-10.0); Hematocrit 37.6 % (42.0-52.0); Hemoglobin 12.2 g/dL (14.0-18.0); Mean Corpuscular HGB CONC 32.4 g/dL (32.0-36.0); Mean Corpuscular Hemoglobin 31.4 pg (27.0-31.0); Mean Corpuscular Volume 96.7 fL (78.0-98.0); Platelet Count 135 10x3/uL (130-400); RBC Distribution Width 12.7 % (11.5-14.5); Red Blood Cell (RBC) Count 3.89 mill/uL (4.70-6.10)
[2023-09-29 05:23] LABS: Lactic Acid 7.3 mmol/L (0.5-2.2)
[2023-09-29 05:28] LABS: Anion Gap 19 mmol/L (10-20)
[2023-09-29 05:30] LABS: BUN (Urea Nitrogen) 28 mg/dL (8.4-25.7); Calc. Creatinine Clearance 74 mL/min (70-130); Calcium 9.2 mg/dL (7.8-10.44); Carbon Dioxide 21 mmol/L (23-31); Chloride 104 mmol/L (98-107); Estimated GFR 66; Glucose 177 mg/dL (83-110); Potassium 4.6 mmol/L (3.5-5.1); Sodium 139 mmol/L (136-145)
[2023-09-29 05:44] LABS: Actual Bicarbonate (HCO3a) 21.6 mEq/L (22-28); Base Excess (BEa) -2.7 mEq/L (-2.0 to +3.0); Calcium, Ionized (arterial) 1.21 mmol/L (1.12-1.30); Carboxyhemoglobin (COHb) 0.3 gm% (0.0-3.0); Hematocrit-ABG 38 % (42.0-52.0); Hemoglobin (Hb) 12.8 g/dL (14.0-18.0); Potassium - ABG Lab 4.51 mmol/L (3.70-5.30); pH, Arterial 7.397 (7.35-7.45)
[2023-09-29 05:45] LABS: Puncture Site RRA
[2023-09-29 07:24] LABS: Bacteria/HPF None Seen HPF (None Seen); Bilirubin Negative (Negative); Blood, Urine Negative (Negative); CAUTI Indications for Culture Alt mental st,lethar; Clarity Clear (Clear); Glucose, Urine (Dipstick) Normal (Negative); Ketone, Urine Trace mg/dL (Negative); Leukocyte 25 Leu/uL (Negative); Nitrite Negative (Negative); Protein, Urine (Dipstick) Negative (Neg-Trace); RBC/HPF 0-3 HPF (0-3); Squamous Epithelial 0-3 HPF (0-3); Urobilinogen Normal mg/dL (Less than 2); WBC/HPF 0-3 HPF (0-3); pH, Urine 5.5 (5.0-9.0)
[2023-09-29] MEDS: Sodium Chloride 0.9% 1,000 ML IV SCH (07:24)
[2023-09-29 07:29] LABS: Hemoglobin A1c 6.2 % (4.0-6.0)
[2023-09-29 07:34] LABS: Urine Culture Reflex No No
[2023-09-29] MEDS: Cefepime 2 GM in Sodium Chloride 0.9% 100 ML IVPB SCH (08:03)
[2023-09-29] MEDS: Tamsulosin HCl 0.4 MG CAP PO SCH (08:03)
[2023-09-29] MEDS: Vancomycin (BATCH) 2.5 GM in Premix 1 BAG IVPB SCH (08:03)
[2023-09-29] MEDS: Memantine 10 MG TAB PO SCH (08:04)
[2023-09-29] MEDS: Escitalopram Oxalate 20 mg Tablet PO SCH (08:04)
[2023-09-29] MEDS: Famotidine 20 MG TAB PO SCH (08:04)
[2023-09-29] MEDS: Gabapentin 100 MG CAP PO SCH (08:04)
[2023-09-29 11:10] LABS: Lactic Acid 5.2 mmol/L (0.5-2.2)
[2023-09-29] MEDS: Rivaroxaban 10 MG TAB PO SCH ×2 (13:42→20:46)
[2023-09-29] MEDS: clonazePAM 0.5 MG TAB PO SCH (20:46)
[2023-09-29] MEDS: Cefepime 1 GM in Sodium Chloride 0.9% 100 ML IVPB SCH (20:46)
[2023-09-29] MEDS: Atorvastatin Calcium 20 MG TAB PO SCH (20:48)
[2023-09-29] MEDS: Lisinopril 5 MG TAB PO SCH (20:48)
[2023-09-29 20:59] LABS: Lactic Acid 3.1 mmol/L (0.5-2.2)
[2023-09-29] MEDS ORDERED: Lisinopril 20 MG TAB PO SCH (21:00)
[2023-09-30] MEDS: Melatonin 3 MG TAB PO PRN (00:10)
[2023-09-30] MEDS: Lorazepam 1 MG TAB PO SCH (02:40)
[2023-09-30 05:22] LABS: Hemoglobin 12.5 g/dL (14.0-18.0); Mean Corpuscular HGB CONC 31.3 g/dL (32.0-36.0); Mean Corpuscular Volume 102.3 fL (78.0-98.0); Mean Platelet Volume 13.5 fL (7.4-10.4); Platelet Count 140 10x3/uL (130-400); Red Blood Cell (RBC) Count 3.91 mill/uL (4.70-6.10)
[2023-09-30 05:44] LABS: Anion Gap 18 mmol/L (10-20)
[2023-09-30 05:45] LABS: Vancomycin, Random 14.4 ug/mL (See Comment)
[2023-09-30 05:46] LABS: BUN (Urea Nitrogen) 30 mg/dL (8.4-25.7); Calc. Creatinine Clearance 84 mL/min (70-130); Calcium 8.8 mg/dL (7.8-10.44); Carbon Dioxide 16 mmol/L (23-31); Chloride 109 mmol/L (98-107); Estimated GFR 77; Glucose 195 mg/dL (83-110); Potassium 4.7 mmol/L (3.5-5.1); Sodium 138 mmol/L (136-145)
[2023-09-30 05:53] LABS: Lactic Acid 6.2 mmol/L (0.5-2.2)
[2023-09-30 08:05] LABS: Actual Bicarbonate (HCO3a) 19.3 mEq/L (22-28); CO2 Tension 46.4 mmHg (35.0-45.0); Calcium, Ionized (arterial) 1.22 mmol/L (1.12-1.30); Carboxyhemoglobin (COHb) 0.8 gm% (0.0-3.0); Hematocrit-ABG 41 % (42.0-52.0); O2 Tension (PaO2), arterial 71.7 mmHg (> 60.0); Potassium - ABG Lab 5.11 mmol/L (3.70-5.30); pH, Arterial 7.238 (7.35-7.45)
[2023-09-30 08:06] LABS: Puncture Site RRA
[2023-09-30] MEDS: Furosemide 40 MG (4 mL) VIAL SLOW IVP SCH ×2 (09:12→13:49)
[2023-09-30] MEDS: Vancomycin (BATCH) 1.75 GM in Premix 1 BAG IVPB SCH (13:49)
[2023-09-30] MEDS: Acetaminophen 325 MG TAB PO PRN (14:42)
[2023-10-01 03:52] LABS: #Basophils Less than 0.03 10x3/uL (0.0-0.2); #Eosinphils Less than 0.03 10x3/uL (0.0-0.7); %Basophils 0.1 % (0.0-1.0); %Lymphocytes 5.4 % (21.0-51.0); %Monocytes 8.2 % (0.0-10.0); %Neutrophils 85.5 % (42.0-75.0); Hematocrit 35.4 % (42.0-52.0); Hemoglobin 11.6 g/dL (14.0-18.0); Mean Corpuscular HGB CONC 32.8 g/dL (32.0-36.0); Mean Corpuscular Volume 97.5 fL (78.0-98.0); Mean Platelet Volume 13.4 fL (7.4-10.4); Platelet Count 112 10x3/uL (130-400); RBC Distribution Width 13.1 % (11.5-14.5); Red Blood Cell (RBC) Count 3.63 mill/uL (4.70-6.10)
[2023-10-01] MEDS ORDERED: diphenhydrAMINE 50 MG/ML VIAL IVP SCH (04:00)
[2023-10-01 04:14] LABS: Anion Gap 13 mmol/L (10-20); BUN (Urea Nitrogen) 37 mg/dL (8.4-25.7); Calc. Creatinine Clearance 60 mL/min (70-130); Calcium 9.2 mg/dL (7.8-10.44); Carbon Dioxide 22 mmol/L (23-31); Chloride 107 mmol/L (98-107); Estimated GFR 52; Glucose 166 mg/dL (83-110); Potassium 3.7 mmol/L (3.5-5.1); Sodium 138 mmol/L (136-145)
[2023-10-01] MEDS: diphenhydrAMINE 12.5 MG/5 ML UDCUP PO SCH (04:30)
[2023-10-01] MEDS: Tamsulosin HCl 0.4 MG CAP PO SCH (09:09)
[2023-10-01] MEDS: Metoprolol Tartrate 5 MG (5 mL) VIAL IVP SCH (09:09)
[2023-10-01] MEDS ORDERED: Metoprolol Tartrate 5 MG (5 mL) VIAL IVP PRN (09:54)
[2023-10-01] MEDS: Sterile Water 10 ML ONE (13:02)
[2023-10-01] MEDS: Ziprasidone 20 MG VIAL IM SCH (13:02)
[2023-10-01] MEDS: Ziprasidone 20 MG VIAL ONE (13:27)
[2023-10-01] MEDS: Rivaroxaban 15 MG TAB PO SCH (17:16)
[2023-10-01] MEDS: Melatonin 3 MG TAB PO SCH (22:47)
[2023-10-01] MEDS: Mirtazapine 15 MG TAB PO SCH (22:47)
[2023-10-02 04:44] LABS: Hematocrit 34.9 % (42.0-52.0); Hemoglobin 11.5 g/dL (14.0-18.0); Mean Corpuscular Hemoglobin 31.9 pg (27.0-31.0); Mean Corpuscular Volume 96.7 fL (78.0-98.0); Mean Platelet Volume 13.4 fL (7.4-10.4); Platelet Count 113 10x3/uL (130-400); RBC Distribution Width 12.8 % (11.5-14.5); Red Blood Cell (RBC) Count 3.61 mill/uL (4.70-6.10)
[2023-10-02 04:52] LABS: Vancomycin, Random 24.4 ug/mL (See Comment)
[2023-10-02 04:53] LABS: Anion Gap 14 mmol/L (10-20); BUN (Urea Nitrogen) 44 mg/dL (8.4-25.7); Calc. Creatinine Clearance 63 mL/min (70-130); Calcium 8.8 mg/dL (7.8-10.44); Carbon Dioxide 25 mmol/L (23-31); Chloride 107 mmol/L (98-107); Estimated GFR 54; Glucose 222 mg/dL (83-110); Potassium 3.3 mmol/L (3.5-5.1); Sodium 143 mmol/L (136-145)
[2023-10-02] MEDS: Vancomycin (BATCH) 1.25 GM in Premix 1 BAG IVPB SCH (09:59)
[2023-10-02] MEDS: Potassium Chloride 20 MEQ in Lactated Ringer's 1,000 ML IV SCH (12:15)
[2023-10-02] MEDS: Polyethylene Glycol 3350 17 GM Packet PER TUBE SCH (16:30)
[2023-10-03 05:21] LABS: Vancomycin, Random 19.9 ug/mL (See Comment)
[2023-10-03 05:26] LABS: Anion Gap 14 mmol/L (10-20); BUN (Urea Nitrogen) 40 mg/dL (8.4-25.7); Calc. Creatinine Clearance 79 mL/min (70-130); Calcium 9.1 mg/dL (7.8-10.44); Carbon Dioxide 27 mmol/L (23-31); Chloride 109 mmol/L (98-107); Estimated GFR 71; Glucose 115 mg/dL (83-110); Potassium 3.7 mmol/L (3.5-5.1); Sodium 146 mmol/L (136-145)
[2023-10-03] MEDS: Vancomycin (BATCH) 1.5 GM in Premix 1 BAG IVPB SCH (08:28)
[2023-10-03] MEDS: Polyethylene Glycol 3350 17 GM Packet PER TUBE SCH (08:29)
[2023-10-03] MEDS: Bisacodyl 10 MG SUPP PR PRN (20:52)
[2023-10-05] MEDS ORDERED: Albuterol 2.5 MG (3 mL) NEB NEB PRN (06:03)
[2023-10-05 06:15] LABS: Hematocrit 39.8 % (42.0-52.0); Hemoglobin 12.6 g/dL (14.0-18.0); Mean Corpuscular HGB CONC 31.7 g/dL (32.0-36.0); Mean Corpuscular Hemoglobin 31.6 pg (27.0-31.0); Mean Corpuscular Volume 99.7 fL (78.0-98.0); Mean Platelet Volume 13.3 fL (7.4-10.4); Platelet Count 126 10x3/uL (130-400); RBC Distribution Width 12.8 % (11.5-14.5); Red Blood Cell (RBC) Count 3.99 mill/uL (4.70-6.10)
[2023-10-05] MEDS: GLYCOPYRROLATE/PF 0.2 MG/ML VIAL SLOW IVP PRN (06:37)
[2023-10-05 06:45] LABS: Anion Gap 13 mmol/L (10-20); BUN (Urea Nitrogen) 36 mg/dL (8.4-25.7); Calc. Creatinine Clearance 91 mL/min (70-130); Calcium 9.2 mg/dL (7.8-10.44); Carbon Dioxide 28 mmol/L (23-31); Chloride 110 mmol/L (98-107); Estimated GFR 82; Glucose 135 mg/dL (83-110); Potassium 3.6 mmol/L (3.5-5.1); Sodium 147 mmol/L (136-145)
[2023-10-05] MEDS: Ziprasidone 20 MG VIAL IM SCH (10:53)
[2023-10-05] MEDS: Sterile Water 10 ML ONE (10:53)
[2023-10-05] MEDS: Ziprasidone 20 MG VIAL ONE (10:53)
[2023-10-06] MEDS: Cefepime 2 GM in Sodium Chloride 0.9% 100 ML IVPB SCH (07:50)
[2023-10-06] MEDS: Furosemide 40 MG (4 mL) VIAL SLOW IVP SCH (09:03)
[2023-10-06 10:04] LABS: Anion Gap 13 mmol/L (10-20); BUN (Urea Nitrogen) 34 mg/dL (8.4-25.7); Calc. Creatinine Clearance 91 mL/min (70-130); Calcium 9.1 mg/dL (7.8-10.44); Carbon Dioxide 29 mmol/L (23-31); Chloride 108 mmol/L (98-107); Estimated GFR 82; Glucose 112 mg/dL (83-110); Sodium 146 mmol/L (136-145)
[2023-10-06] MEDS: Rivaroxaban 10 MG TAB PO SCH (18:27)
[2023-10-07 13:07] VITALS: BMI 30.4
[2023-10-07 16:36] VITALS: BP 111/59
[2023-10-08 06:16] LABS: Hematocrit 35.2 % (42.0-52.0); Hemoglobin 11.1 g/dL (14.0-18.0); Mean Corpuscular HGB CONC 31.5 g/dL (32.0-36.0); Mean Corpuscular Hemoglobin 30.9 pg (27.0-31.0); Mean Corpuscular Volume 98.1 fL (78.0-98.0); Mean Platelet Volume 13.1 fL (7.4-10.4); Platelet Count 134 10x3/uL (130-400); RBC Distribution Width 12.2 % (11.5-14.5); Red Blood Cell (RBC) Count 3.59 mill/uL (4.70-6.10)
[2023-10-08 06:47] LABS: Anion Gap 15 mmol/L (10-20); BUN (Urea Nitrogen) 34 mg/dL (8.4-25.7); Calc. Creatinine Clearance 90 mL/min (70-130); Calcium 8.9 mg/dL (7.8-10.44); Carbon Dioxide 31 mmol/L (23-31); Chloride 101 mmol/L (98-107); Estimated GFR 82; Glucose 110 mg/dL (83-110); Potassium 3.6 mmol/L (3.5-5.1); Sodium 143 mmol/L (136-145)
[2023-10-08] MEDS: Lorazepam 2 MG/ML VIAL ONE (10:25)
[2023-10-08] MEDS: Amoxicillin/Potassium Clav 875 MG TAB PO SCH (21:31)
[2023-10-10] MEDS ORDERED: Lorazepam 2 MG/ML VIAL SLOW IVP PRN (10:42)
[2023-10-10 12:11] VITALS: TEMP 97.7
== END 2023-10-10 13:37 | disposition hospice, home (50) | DRG 177 ==
LOC: ERS 15:26 → SJJU 19:30 → IMCU/EMU 09-30 08:05
PROVIDERS: ADMIT Student in an Organized Health Care Education/Training Program; ATTEND Internal Medicine
PROC: 4A133R1 Monitoring of Arterial Saturation, Peripheral, Percutaneous Approach (ICD-10-PCS; principal; 2023-09-28)
PROC: 3E03329 Introduction of Other Anti-infective into Peripheral Vein, Percutaneous Approach (ICD-10-PCS; 2023-09-28)
PROC: 5A09457 Assistance with Respiratory Ventilation, 24-96 Consecutive Hours, Continuous Positive Airway Pressure (ICD-10-PCS; 2023-09-30)
PROC: 5A0935A Assistance with Respiratory Ventilation, Less than 24 Consecutive Hours, High Flow/Velocity Cannula (ICD-10-PCS; 2023-09-30)
DX: J69.0 Pneumonitis due to inhalation of food and vomit (principal); J96.01 Acute respiratory failure with hypoxia; E87.20 Acidosis, unspecified; N17.9 Acute kidney failure, unspecified; E87.0 Hyperosmolality and hypernatremia; Z88.8 Allergy status to other drugs, medicaments and biological substances; Z88.7 Allergy status to serum and vaccine; Z79.899 Other long term (current) drug therapy; I10 Essential (primary) hypertension; E78.00 Pure hypercholesterolemia, unspecified; Z90.89 Acquired absence of other organs; Z98.890 Other specified postprocedural states; F32.A Depression, unspecified; F41.9 Anxiety disorder, unspecified; Z87.891 Personal history of nicotine dependence; Z90.49 Acquired absence of other specified parts of digestive tract; N40.1 Benign prostatic hyperplasia with lower urinary tract symptoms; F03.90 Unspecified dementia, unspecified severity, without behavioral disturbance, psychotic disturbance, mood disturbance, and anxiety; Z51.5 Encounter for palliative care; R73.03 Prediabetes; Z66 Do not resuscitate; I48.91 Unspecified atrial fibrillation; I35.0 Nonrheumatic aortic (valve) stenosis
CPT/HCPCS: 36415; 36416; 36600; 71045; 71275; 74018; 80048; 80053; 80202; 81001; 82805; 83036; 83605; 83690; 83735; 83880; 84484; 85025; 85027; 85379; 87040; 87081; 93005; 93010; 94640; 94660; 96365; 96367; 96375; J0692; J1100; J1940; J3370; J3475; J3480; J3486; J3490; J7050; J7120; J7611; J7620; Q9967